=== PATIENT | male | born 1945 | race Caucasian/White ===

== ENCOUNTER 2023-12-29 20:32 | Observation (INO) | payer MEDICARE, SELFPAY ==
[2023-12-29] VITALS (8 sets, daily range): BP systolic 108–158; BP diastolic 58–78; BMI 27.3
[2023-12-29 17:09] LABS: Glucose - Point of Care 127 mg/dl (70-99)
--- NOTE | 2023-12-29 17:19 | ED.CVA ---
History of Present Illness
<Antonia Calixto PA-C - Last Filed: 12/29/23 20:39>
General
Chief Complaint: CVA/TIA Symptoms
Source: patient
Exam Limitations: none
Time Seen by Provider: 12/29/23 17:04
Nursing documentation reviewed up to this point in time: agreed with
Onset of Stroke Symptoms
Onset of symptoms known: Yes
Date of onset of symptoms: 12/28/23
Time pt last seen normal is known: Yes
Date last time pt seen normal: 12/29/23
History of Present Illness
History of Present Illness:
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 Patient reports that he first started with irritation
in his left eye a few days ago. Patient states that he had trouble closing his left eye. Patient states that this morning when he eating breakfast at around 9 AM, he noticed that coffee was dribbling out of the left side of his mouth. Patient
noted also at that time a decrease in sensation on the left side of his face. Of note, patient reports that his noted that last night, his speech appeared 'different' to her. Patient himself denies any difficulty speaking. Patient denies any
rashes, any fevers or chills. 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 Patient denies ear pain, lightheadedness, dizziness. Patient states that he has had a TIA in the past but denies
ever having a stroke. Patient denies any left-sided upper or lower extremity weakness. Patient Nuys any difficulty ambulating. Patient denies any decrease in sensation in his extremities. Patient denies any chest pain or shortness of breath.
Note, patient reported to urgent care today with concerns of left eye irritation however patient was sent to the emergency department due to his facial droop.
Review of Systems
<Antonia Calixto PA-C - Last Filed: 12/29/23 20:39>
Review of Systems
All Other Systems: ROS reviewed and negative except as documented in HPI and ROS
Phy Exam
<Antonia Calixto PA-C - Last Filed: 12/29/23 20:39>
Physical Exam
Physical Exam:
General: Patient is well appearing and in no acute distress; non-toxic
Skin: Warm and dry, no rashes or lesions
Head: Normocephalic, atraumatic
Eyes: Sclera non-icteric. EOMs intact. PERRLA. Left scleral injection noted. Visual field testing intact.
Cardiac: Regular rate and rhythm, no murmurs.
Peripheral Vascular: No lower extremity swelling or edema.
Pulm: Normal respiratory effort, no wheezes, rales, rhonchi
Musculoskeletal: 5 out of 5 strength in bilateral upper and lower extremities.
Neuro: CN II-XII intact. Left sided facial droop noted that spares the forehead and eyebrow. Tongue deviation noted. Decrease sensation noted to left side of face. Normal finger to nose, heel to daley testing. Normal gate.
Psychiatric: Appropriate mood and affect.
Scores
<Antonia Calixto PA-C - Last Filed: 12/29/23 20:39>
NIH Stroke Score
Level of Consciousness: 0 - Alert
LOC Questions: 0-Answers both correctly
LOC Commands: 0-Performs both correctly
Best Horizontal Gaze: 0-Normal
Visual Henao: 0=Normal, no visual loss
Facial Palsy: 2=Partial paralysis
Motor - Right Arm: 0=No drift 10 seconds
Motor - Left Arm: 0=No drift 10 seconds
Motor - Right Le-No drift 5 seconds
Motor - Left Le-No drift 5 seconds
Limb Ataxia: 0-Absent
Sensation: 0-Normal
Best Language: 0-No aphasia
Dysarthria: 0-Normal
Extinction and Inattention: 0-No abnormality
Total Score:: 2
<Dwayne De Paz MD - Last Filed: 12/29/23 19:34>
NIH Stroke Score
Total Score:: 2
Course
<Antonia Calixto PA-C - Last Filed: 12/29/23 20:39>
Orders/Labs/Results
Orders:
Orders
12/29/23 17:10
Complete Blood Count/With Diff Urgent
Comprehensive Metabolic Panel Urgent
12/29/23 17:19
CT Head W/o Iv Contrast Urgent
Comment:
Reason For Exam: left facial droop
12/29/23 19:50
Aspirin 325 mg PO NOW STA
12/29/23 20:21
Admit/Transfer Patient As Directed
Co-Sign Provider:
Level of Care: Observation services
Assign to:: Telemetry
Physician / Group: michelle
Diagnosis: bells palsy vs cva
Reason for Telemetry: Arrhythmia
Date to Stop Telemetry: 01/01/24
Time to Stop Telemetry: 11:00
PRN Pain Medication Management As Directed
May give lesser potent ordered pain med per pt: Yes
preference::
Protocol:: Medication orders for pain may be administered in a
manner that supports deferring to patient preference
when the pt is:
- Requesting an ordered lesser potent pain medication.
Least to most potent pain medications are defined
as: acetaminophen < NSAID < tramadol < opioids
(morphine, oxycodone, hydromorphone).
- Requesting a lesser dose of the same medication IF
ORDERED.
- Requesting a less intrusive route of administration
if both routes are prescribed by the provider (PO <
IV).
12/29/23 20:22
Code Status As Directed
Resuscitation Status: Full Code
12/29/23 20:24
Clopidogrel Bisulfate [Plavix] 300 mg PO NOW STA
12/29/23 20:31
Potassium Chloride [KCl] 40 meq PO NOW STA
01/01/24 11:00
DC Protocol for Telemetry ONCE
Abnormal Lab Results
12/29/23 12/29/23
17:07 17:10
RBC 4.64 L 10^6/uL
(4.70-6.10)
MCH 31.3 H pg
(27.0-31.0)
Absolute Monos (auto) 0.7 H 10^3/uL
(0.1-0.6)
Monocytes % 9.6 H %
(1.7-9.3)
Potassium 3.1 L mmol/L
(3.5-5.1)
Glucose 122 H mg/dl
(70-99)
POC Glucose 127 H mg/dl
(70-99)
12/29/23 17:10
12/29/23 17:10
Vital Signs
Initial and Last Documented VS:
Initial Vital Signs
Temp Pulse Resp BP Pulse Ox
98.1 F 92 18 108/58 97
12/29/23 16:49 12/29/23 16:49 12/29/23 16:49 12/29/23 16:49 12/29/23 16:49
Last Documented Vital Signs
Temp Pulse Resp BP Pulse Ox
98.1 F 79 16 131/66 98
12/29/23 16:49 12/29/23 20:15 12/29/23 20:15 12/29/23 20:00 12/29/23 18:00
<Dwayne De Paz MD - Last Filed: 12/29/23 19:34>
Orders/Labs/Results
Orders:
Orders
12/29/23 17:10
Complete Blood Count/With Diff Urgent
Comprehensive Metabolic Panel Urgent
12/29/23 17:19
CT Head W/o Iv Contrast Urgent
Comment:
Reason For Exam: left facial droop
12/29/23 19:50
Aspirin 325 mg PO NOW STA
12/29/23 20:21
Admit/Transfer Patient As Directed
Co-Sign Provider:
Level of Care: Observation services
Assign to:: Telemetry
Physician / Group: michelle
Diagnosis: bells palsy vs cva
Reason for Telemetry: Arrhythmia
Date to Stop Telemetry: 01/01/24
Time to Stop Telemetry: 11:00
PRN Pain Medication Management As Directed
May give lesser potent ordered pain med per pt: Yes
preference::
Protocol:: Medication orders for pain may be administered in a
manner that supports deferring to patient preference
when the pt is:
- Requesting an ordered lesser potent pain medication.
Least to most potent pain medications are defined
as: acetaminophen < NSAID < tramadol < opioids
(morphine, oxycodone, hydromorphone).
- Requesting a lesser dose of the same medication IF
ORDERED.
- Requesting a less intrusive route of administration
if both routes are prescribed by the provider (PO <
IV).
12/29/23 20:22
Code Status As Directed
Resuscitation Status: Full Code
12/29/23 20:24
Clopidogrel Bisulfate [Plavix] 300 mg PO NOW STA
12/29/23 20:31
Potassium Chloride [KCl] 40 meq PO NOW STA
01/01/24 11:00
DC Protocol for Telemetry ONCE
Abnormal Lab Results
12/29/23 12/29/23
17:07 17:10
RBC 4.64 L 10^6/uL
(4.70-6.10)
MCH 31.3 H pg
(27.0-31.0)
Absolute Monos (auto) 0.7 H 10^3/uL
(0.1-0.6)
Monocytes % 9.6 H %
(1.7-9.3)
Potassium 3.1 L mmol/L
(3.5-5.1)
Glucose 122 H mg/dl
(70-99)
POC Glucose 127 H mg/dl
(70-99)
12/29/23 17:10
12/29/23 17:10
Vital Signs
Initial and Last Documented VS:
Initial Vital Signs
Temp Pulse Resp BP Pulse Ox
98.1 F 92 18 108/58 97
12/29/23 16:49 12/29/23 16:49 12/29/23 16:49 12/29/23 16:49 12/29/23 16:49
Last Documented Vital Signs
Temp Pulse Resp BP Pulse Ox
98.1 F 79 16 131/66 98
12/29/23 16:49 12/29/23 20:15 12/29/23 20:15 12/29/23 20:00 12/29/23 18:00
Hannahlt;Antonia Calixto PA-C - Last Filed: 12/29/23 20:39>
MDM/Problems Addressed
Differential Diagnosis Includes:
Differentials include stroke, Rosenthal's palsy, Lyme disease, herpes simplex virus, guillan barre syndrome, brain tumor, MS
MDM/Problems Addressed:
Stroke like symptoms:
78 y/o male hx of TIA, HTN, HLP coming in today with left sided facial droop and left eye redness/irritation. He has had the eye irritation for multiple days and went to urgent care and they noticed the droop and they sent him to the emergency
department. He said he thought the droop might've started at 9 am this morning when he noticed coffee dribbling out of the left side of his mouth. NIHHS of 2.On exam, he has left-sided facial droop that spares the forehead with decreased left-sided
facial sensation but normal strength in bilateral upper and lower extremities. Also has tongue deviation. Due to his stroke risk factors and the fact that his symptoms spares the forehead and eyebrow, we will refer for admission for stroke workup.
Case discussed with my attending.
Chronic conditions affecting care:
TIA, HTN, HLP
<Antonia Calixto PA-C - Last Filed: 12/29/23 20:39>
*Critical Care Note
Total Time (30-74mins, 75-104mins- exclusive of procedures): Not Applicable (last known normal unclear but at least more than 4.5 hours ago)
ED Attending Note
<Antonia Calixto PA-C - Last Filed: 12/29/23 20:39>
-
Portions of this chart may have been created with voice recognition software.� Occasional wrong word or��sound alike� substitutions may have occurred due to the inherent limitations of voice recognition software.
<Dwayne De Paz MD - Last Filed: 12/29/23 19:34>
ED Attending Note
Patient seen and examined by attending physician: Yes
I performed the substantive portion of visit, reviewed & personally made and approve the management plan that is documented in note by myself or SARAH.: Yes
ED Attending Note:
Patient is a 70-year-old male with history of hypertension, hyperlipidemia, Rosenthal's palsy presenting to the emergency department with facial weakness. Patient states that 2 days ago his eye started bothering him. Today he noticed that coffee was
spilling out of his mouth. noticed that he had a change in his speech. Given the eye problem they went to an urgent care today where they noticed that he had left-sided facial droop. He denies any numbness tingling to his extremities or
weakness. He does have history of prior TIAs that involve the right side. No rashes
Vitals here are unremarkable.
GENERAL: in no acute distress
HEENT: normocephalic, extraocular movements intact, moist oral mucosa
NECK: normal inspection
RESPIRATORY: no respiratory distress, clear to auscultation bilaterally
CARDIOVASCULAR: regular rate and rhythm
ABDOMEN/: soft, non-distended, non-tender to palpation, no rebound or guarding
EXTREMITIES: non-tender, no edema/swelling
NEUROLOGIC: alert and oriented x 3, left-sided facial droop that spares the forehead with decreased left-sided facial sensation right upper extremity strength 5/5, left upper extremity strength 5/5, right lower extremity strength 5/5, left lower
extremity strength 5/5, normal sensation to light touch, normal [id number] and [id number], gait not tested formally
SKIN: warm
Patient is a 78-year-old man with history of prior TIA, hypertension, hyperlipidemia presenting to the emergency department with facial weakness. Patient's last known normal is unclear but at least more than 4.5 hours ago. NIH is 2. He does have
an obvious facial droop with decreased sensation. He is outside of the stroke alert window. Will obtain blood work and CT scan. Patient will need admission for further management and evaluation.
CT scan without any obvious hemorrhage. Will give aspirin. PA to discuss with hospitalist for admission.
Discharge Plan
Departure
Patient Disposition: Admit
Date of Disposition: 12/29/23
Time of Disposition: 20:06
Admit to: Med/Surg
Presentation/result/management discussed w/ accepting MD/DO: Hospitalist
Patient with high blood pressure during this ER visit?: No
Condition: Fair
Discharge Problem:
Symptoms of cerebrovascular accident (CVA)
Interventions
Interventions:
ED- Pulmonary Assessment Last Done: 12/29/23 17:20
ED- Neurological Assessment Last Done: 12/29/23 17:20
ED- Cardiac Assessment Last Done: 12/29/23 17:20
ED Swallowing Screen Last Done: 12/29/23 17:30
[2023-12-29 17:28] LABS: % Basophils 0.4 % (0-2); % Eosinophils 2.1 % (0-6); % Immature Granulocytes 0.1 % (0-0.5); % Lymphocytes 25.7 % (20.5-51.1); % Monocytes 9.6 % (1.7-9.3); % Neutrophils 62.1 % (42.2-75.2); Absolute Eosinophils 0.2 10^3/uL (0-0.7); Absolute Lymphocytes 1.9 10^3/uL (1.2-3.4); Absolute Monocytes 0.7 10^3/uL (0.1-0.6); Absolute Neutrophils 4.5 10^3/uL (1.4-6.5); Hematocrit 39.6 % (39.0-52.0); Hemoglobin 14.5 g/dL (13.0-18.0); Mean Corp Hgb Conc. 36.6 g/dL (33.0-37.0); Mean Corpuscular Hgb 31.3 pg (27.0-31.0); Mean Corpuscular Volume 85.3 fL (80.0-94.0); Mean Platelet Volume 9.1 fL (7.4-10.4); Nucleated Red Blood Cells % 0 % (-); Platelet Count 226 10^3/uL (130-400); Red Blood Cell Count 4.64 10^6/uL (4.70-6.10); White Blood Cell Count 7.2 10^3/uL (4.8-10.8)
[2023-12-29 17:47] LABS: ALT (SGPT) 20 U/L (0-50); AST (SGOT) 28 U/L (17-59); Albumin 4.6 g/dl (3.5-5.0); Alkaline Phosphatase 79 U/L (38-126); Blood Urea Nitrogen 19 mg/dl (9-20); Calcium 9.9 mg/dl (8.4-10.2); Carbon Dioxide 30 mmol/L (22-30); Chloride 98 mmol/L (98-107); Glucose 122 mg/dl (70-99); Potassium 3.1 mmol/L (3.5-5.1); Sodium 137 mmol/L (135-145); Total Bilirubin 0.5 mg/dl (0.2-1.3); Total Protein 6.8 g/dl (6.3-8.2); eGFR > 60.00
[2023-12-29] MEDS: ASPIRIN 325 MG PO (20:07)
--- NOTE | 2023-12-29 20:24 | HPS.HSE ---
Addendum entered and electronically signed by Randolph Bhatt MD 12/29/23 20:29:
Left eye conjunctivitis. Erythromycin eyedrops.
Original Note:
Family Physician
-
Family Physician: Enmanuel Salomon MD, Resident
Chief Complaint
-
facial droop
History of Present Illness
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
palsy 15 years ago right side of the face, presenting with left-sided facial droop and left eye irritation. A few days ago he developed pain in the corner of his left eye with pain in that area. He denies any injury to the eye or allergies.
This morning when he was eating breakfast he noticed cough he was drooling out of the left side of his mouth and he noticed decree sensation left side of his face. noticed that last night his speech appeared slurred. He denies any difficulty
speaking. Denies any rash, fevers or chills. 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
He has a history of double vision which was thought to be from ocular nerve palsy which has been corrected with glasses. He denies any worsening double vision at this time.
He has a history of vestibular dysfunction and occasional gait dysfunction with falls with migraine that is well-controlled on nortriptyline. He denies any tinnitus or hearing loss at this time. He denies any focal weakness or difficulty
ambulating. He denies any numbness or tingling the extremities. He denies any chest pain or shortness of breath.
He has a history of hemochromatosis like disease for which he got phlebotomy.
He denies any smoking or alcohol use or drugs.
Medical History
Past Medical History
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
15 years ago right side of the face)
Past Surgical History: Reports None
Social History
Tobacco: Non-smoker
Alcohol: None
Drug: None
Family History
Family History: Not pertinent
Allergies / Home Medications
Allergies reflects when Allergies were last updated in [employer].
Home Medications with original date entered in [employer]
Allergy/Medication List:
Allergies
Allergy/AdvReac Type Severity Reaction Status Date / Time
No Known Allergies Allergy Unverified 12/29/23 16:55
Home Medications
amlodipine 2.5 mg tablet 2.5 mg PO HS 12/29/23
atorvastatin 10 mg tablet 10 mg PO Q48H 12/29/23
gabapentin 300 mg capsule 300 mg PO HS 12/29/23
lisinopril 20 mg-hydrochlorothiazide 25 mg tablet 1 tab PO DAILY 12/29/23
nortriptyline 50 mg capsule 50 mg PO HS 12/29/23
Review of Systems
-
History Source: Patient
A 12 point ROS was completed and negative except as noted: Yes
Constitutional: Reports No Symptoms
EENT: Reports No Symptoms
Respiratory: Reports No Symptoms
Cardiac: Reports No Symptoms
Abdomen/GI: Reports No Symptoms
: Reports No Symptoms
Musculoskeletal: Reports No Symptoms
Skin: Reports No Symptoms
Neurological: Reports See HPI
Endocrine: Reports No Symptoms
Hematologic/Lymphatic: Reports No Symptoms
Psych: Reports No Symptoms
Physical Exam
Vital Signs
Vital Signs
Temp Pulse Resp BP Pulse Ox
98.1 F 79 16 131/66 98
12/29/23 16:49 12/29/23 20:15 12/29/23 20:15 12/29/23 20:00 12/29/23 18:00
Physical Exam
General: Well Developed, Well Nourished and No Apparent Distress
HEENT: NormoCephalic, Moist mucous membranes and Atraumatic
Respiratory: Clear
Cardiac: S1/S2 and Regular Rhythm; No Murmur or Rub
GI: Soft, Non Tender, Non Distended and Normal Bowel Sounds; No Organomegaly
Rectal: Deferred by Provider
Musculoskeletal: No Clubbing, No Cyanosis and No Edema
Skin: No Rash
Neuro: Nonfocal/grossly intact and Other (NIH 3 partial face paralysis and decreased sensation)
Laboratory Results
-
12/29/23 17:10
12/29/23 17:10
Laboratory Results
Total Bilirubin 0.5 mg/dl (0.2-1.3) 12/29/23 17:10
AST 28 U/L (17-59) 12/29/23 17:10
ALT 20 U/L (0-50) 12/29/23 17:10
Alkaline Phosphatase 79 U/L (38-126) 12/29/23 17:10
Data Reviewed
-
Lab Data: Labs Reviewed by me
Old Records: Reviewed
Impression/Plan
-
IMPRESSION:
PLAN:
# Rosenthal's palsy versus CVA
# History of Rosenthal's palsy
-NIH of 3 due to partial face paralysis and decreased sensation, however face paralysis seems to be mildly affecting the forehead suggesting Rosenthal's palsy
-CT head shows no acute abnormality
-Aspirin and Plavix
-Check MRI brain
-Check A1c and lipid panel
-Check speech and swallow
-Permissive hypertension, hold antihypertensives
-PT/OT
-Neurology consulted
# Hypokalemia secondary to hydrochlorothiazide
-Replete potassium
History of vestibular dysfunction associate with migraines
-Continue nortriptyline
History of ocular nerve palsy
-has some baseline double vision
Common variable immunodeficiency
-Not on treatment
Hemochromatosis like disorder
-Received phlebotomy in the past
Essential hypertension
-Hold amlodipine, lisinopril/hydrochlorothiazide tonight
Hyperlipidemia
-Continue statin
Chronic back pain
-Continue gabapentin
Full code
DVT prophylaxis�SCDs
Regular diet
[2023-12-29] MEDS: PLAVIX 300 MG PO (20:39)
[2023-12-29] MEDS: KCL 40 MEQ PO (20:39)
[2023-12-29] MEDS: NEURONTIN 300 MG PO (22:15)
--- NOTE | 2023-12-29 22:15 | PTCARENOTE ---
pt has a watch
[2023-12-29] MEDS: ERYTHROMYCIN 0.5% OPHTHALMIC OINTMENT 1 APPLIC OPHTH (22:16)
[2023-12-29] MEDS: PAMELOR 50 MG PO (22:16)
--- NOTE | 2023-12-29 22:28 | PTCARENOTE ---
Received pt from ED via stretcher, pt ambulated to bed without assistance. AAOx3, VSS, no complaints of pain. NIH 4 for facial droop, mild slur, slight decreased sensation on left side of face. Oriented pt to floor, call franco within reach.
[2023-12-30 03:10] VITALS: BP 143/66
[2023-12-30 06:52] LABS: Hematocrit 39.3 % (39.0-52.0); Hemoglobin 14.1 g/dL (13.0-18.0); Mean Corp Hgb Conc. 35.9 g/dL (33.0-37.0); Mean Corpuscular Hgb 31.8 pg (27.0-31.0); Mean Corpuscular Volume 88.7 fL (80.0-94.0); Mean Platelet Volume 9.8 fL (7.4-10.4); Platelet Count 204 10^3/uL (130-400); Red Blood Cell Count 4.43 10^6/uL (4.70-6.10); Red Cell Dist. Width 11.9 % (11.5-14.5); White Blood Cell Count 5.7 10^3/uL (4.8-10.8)
[2023-12-30 07:20] LABS: Blood Urea Nitrogen 19 mg/dl (9-20); Calcium 9.6 mg/dl (8.4-10.2); Carbon Dioxide 30 mmol/L (22-30); Chloride 100 mmol/L (98-107); Estimated Creatinine Clearance 59 ml/min; Glucose 126 mg/dl (70-99); HDL Cholesterol 39 mg/dl; LDL Cholesterol, Calculated 78 mg/dl; Potassium 3.7 mmol/L (3.5-5.1); Sodium 135 mmol/L (135-145); Total Cholesterol 145 mg/dl (50-199); Triglyceride 141 mg/dl (10-149); Very Low Density Lipoprotein 28 mg/dl (0-30); eGFR > 60.00
[2023-12-30 07:51] LABS: Hepatitis C Antibody Negative (Negative)
[2023-12-30 08:03] VITALS: BP 131/66
[2023-12-30 08:34] LABS: Glycohemoglobin (HgbA1c) 6.2 % (4.0-5.6)
[2023-12-30 08:45] VITALS: BP 148/77; PULSE 76; O2SAT 97
[2023-12-30] MEDS: LIPITOR 10 MG PO (09:06)
[2023-12-30] MEDS: PLAVIX 75 MG PO (09:07)
[2023-12-30] MEDS: ERYTHROMYCIN 0.5% OPHTHALMIC OINTMENT 1 APPLIC OPHTH (09:07)
--- NOTE | 2023-12-30 10:05 | PTOTSP ---
ST Acute Care Evaluation
Pt currently demonstrates clinical symptoms of mild oral dysphagia characterized by L sided labial weakness results in anterior spillage (not observed) and reduced L sided sensation in lips/mouth that results in occasional reported residue (not
observed). Pt also self-reports slight dysarthria, but is perceived to be 100% intelligible to an unfamiliar listener.
Recommendations:
- Continue with regular solids, thin liquids, meds as tolerated.
- General aspiration precautions: small bites, tongue sweep, alternate solids/liquids.
- SEPARATOR INSERTER to f/u briefly to ensure pt is adequately implementing compensatory strategies for both speech and swallowing.
--- NOTE | 2023-12-30 10:54 | PTOTSP ---
Received order for PT and reviewed chart. S/w OT and pt who just saw neurologist at bedside. Pt admitted with Rosenthal's palsy. Has no other strength/sensory deficits. Independent with ambulation without need for any assistive device. Pt asking about
outpatient PT for Rosenthal's palsy. S/w outpatient therapist. Gave pt pamphlet for outpatient PT and name of therapist who treats Rosenthal's palsy. No acute PT mobility needs. Will sign off.
[2023-12-30 11:44] VITALS: BP 133/71
[2023-12-30] MEDS: DELTASONE 60 MG PO (12:06)
--- NOTE | 2023-12-30 12:56 | W.PN.HOSP.TC ---
Today's Communication/Plan
-
initiate steroids
lyme check
discharge home if mri neg
Assessment / Plan
Assessment / Plan
1. Left franco's palsy
h/o right franco's palsy
-r/o stroke, MRI brain pending.
-CT head shows no acute abnormality
-Check speech and swallow
-Check Lyme serology, left ear - no pain/blister.
-Neurology consulted for further help
-Started on oral prednisone 60mg/d x7 days for now
2. Hypokalemia
-secondary to hydrochlorothiazide
-Replace PRN
3. Left eye episcleritis
-will need evaluation by ophthalmology post discharge
History of vestibular dysfunction associate with migraines
History of ocular nerve palsy
Common variable immunodeficiency - denies h/o of bacterial infection in past.
H/o high ferritin/Iron overload -Received phlebotomy in the past due to high ferritin level, although Hemochromatosis gene testing was negative.
Essential hypertension
Hyperlipidemia
Chronic back pain
Full code
DVT prophylaxis�SCDs
Anticipated Discharge: Today
Subjective/Interval History
-
Date of Service: December 30, 2023
seen and examined
patient still have left facial weakness/left conjunctivitis
Objective Data
-
Labs:
Laboratory Results
12/30/23
04:35
WBC 5.7
Hgb 14.1
Hct 39.3
Plt Count 204
Sodium 135
Potassium 3.7
Chloride 100
Carbon Dioxide 30
BUN 19
Creatinine 1.0
Glucose 126 H
Calcium 9.6
Vital Signs:
Vital Signs
Temp Pulse Resp BP Pulse Ox
97.9 F 71 18 133/71 98
12/30/23 11:44 12/30/23 11:44 12/30/23 11:44 12/30/23 11:44 12/30/23 11:44
Review of Systems
-
Respiratory: Reports No Symptoms
Cardiac: Reports No Symptoms
Abdomen/GI: Reports No Symptoms
Physical Exam
-
General: No Apparent Distress and Comfortable
HEENT: Negative Oxygen
Respiratory: Clear to Auscultation
Cardiac: Regular Rhythm and S1/S2; Negative Murmur or Rub
Neuro: Awake, Alert, Oriented and Other (Left facial droop, able to wrinkle forehead, loss of left nasolabial groove)
Psych: Calm
--- NOTE | 2023-12-30 15:27 | CM ---
Alert awake oriented patient who lives with his Jessica who lives in a 2 story home with 1 step to enter and bed and bathroom on first floor. He is independent in all activities of daily living.No adaptive devices.Offered VN he declined
need.[place] letter given and explained. Signed AUSTIN on chart.
No VN hx /No SNF hx
Pharmacy [facility]
PCP DR Taj Fernández
PLAN Home no anticipated needs
--- NOTE | 2023-12-30 18:25 | W.DCSUMMARY ---
Discharge Summary
Discharge Data
Date of Admission: 12/29/23
Date of Discharge: 12/30/23
-
Pending Results: No
Hospital Course
Discharging Physician : Dr Shivam Espinosa
Disposition : Home
Primary care physician : Dr Enmanuel Salomon
Principal Discharge diagnosis :
Left bells palsy
Presumed left eye episcleritis
Chronic Discharge diagnosis :
History of vestibular dysfunction associated with migraines
History of ocular nerve palsy
Common variable immunodeficiency
History of high ferritin level/iron overload requiring phlebotomy
Essential hypertension
Hyperlipidemia
Chronic back pain
Hospital Course :
Patient is a 78-year-old male with mentioned past medical history came to ER for having new onset left-sided facial weakness. Patient initially noticed redness and corner of left eye followed by some drooping of eyelid and facial weakness. Patient
does have history of Rosenthal's palsy on right side of face, reason was unclear during the first episode. Patient denies of history of any Lyme/HSV infection. On exam in ER findings were consistent with Rosenthal's palsy. CT head was done by ER physician
which was negative. A follow-up MRI brain was done following day which was also negative for any stroke. Patient was started on prednisone therapy and discharged home with follow-up with ophthalmology in office.
Important imaging findings :
None
Procedure findings :
None
Discharge Plan
-
Patient Disposition: Home (Routine Discharge)
Discharge Diagnosis/Procedures: Left bells plasy
Condition: Fair
Diet: Regular
Activity: As tolerated
Driving Restrictions: As prior to admission
Bathing Restrictions: OK to Shower
Activity Restrictions/Additional Instructions:
Please wear protective sunglass or left eye patch.
Please call for an appointment with Dr Cate Littlejohn
Referrals:
Kris Lauren MD [Active] - in one month
Cate Littlejohn MD [Active] -
Enamnuel Salomon MD, Resident [Family Provider] - in one week
Prescriptions:
New
carboxymethylcellulose sodium [Refresh Tears] 0.5 % drops
2 drp ophthalmic (eye) Q4H Qty: 15 0RF
prednisone 20 mg tablet
60 mg PO DAILY 7 Days Qty: 21 0RF
Continued
atorvastatin 10 mg Tablet
10 mg PO Q48H
amlodipine 2.5 mg Tablet
2.5 mg PO HS
gabapentin 300 mg Capsule
300 mg PO HS
lisinopril-hydrochlorothiazide 20-25 mg Tablet
1 tab PO DAILY
nortriptyline 50 mg Capsule
50 mg PO HS
Discharge Orders:
Discharge Patient (As Directed); Ordered 12/30/23
Ordered By: Shivam Espinosa
Discharge Date and Time
Discharge Date/Time: 12/30/23 15:52
Print Language: CYMRAES
[2024-01-03 14:45] LABS: Lyme Antibody Screen, EIA Negative (Negative)
== END 2023-12-30 15:52 | disposition home or self-care (01) ==
LOC: 4 EAST ACU 20:32
PROVIDERS: Physician Assistant; ADMITTING PHYSICIAN Hospitalist; ATTENDING PHYSICIAN Hospitalist; EMERGENCY PHYSICIAN Student in an Organized Health Care Education/Training Program; FAMILY PHYSICIAN Student in an Organized Health Care Education/Training Program
DX: G51.0 Bell's palsy (principal); H57.89 Other specified disorders of eye and adnexa; I10 Essential (primary) hypertension; E78.5 Hyperlipidemia, unspecified; H10.89 Other conjunctivitis; G89.29 Other chronic pain; D83.9 Common variable immunodeficiency, unspecified; E87.6 Hypokalemia; M54.9 Dorsalgia, unspecified; E83.119 Hemochromatosis, unspecified; G31.89 Other specified degenerative diseases of nervous system; H15.102 Unspecified episcleritis, left eye; Z86.73 Personal history of transient ischemic attack (TIA), and cerebral infarction without residual deficits
CPT/HCPCS: 70450; 70551; 80048; 80053; 80061; 82962; 83036; 85025; 85027; 86618; 86803; 92610; 97166; 99285; G0378

== ENCOUNTER 2024-08-30 07:36 | Inpatient (IN) | payer MEDICARE, SELFPAY ==
[2024-08-27] VITALS (8 sets, daily range): BP systolic 119–177; BP diastolic 64–107
[2024-08-27 17:41] LABS: % Basophils 0.8 % (0-2); % Eosinophils 3.1 % (0-6); % Immature Granulocytes 0.2 % (0-0.5); % Monocytes 9.1 % (1.7-9.3); % Neutrophils 62.8 % (42.2-75.2); Absolute Basophils 0.1 10^3/uL (0-0.2); Absolute Eosinophils 0.2 10^3/uL (0-0.7); Absolute Lymphocytes 1.6 10^3/uL (1.2-3.4); Absolute Monocytes 0.6 10^3/uL (0.1-0.6); Absolute Neutrophils 4.1 10^3/uL (1.4-6.5); Hematocrit 39.4 % (39.0-52.0); Mean Corp Hgb Conc. 35.5 g/dL (33.0-37.0); Mean Corpuscular Hgb 30.8 pg (27.0-31.0); Mean Corpuscular Volume 86.6 fL (80.0-94.0); Mean Platelet Volume 9.4 fL (7.4-10.4); Nucleated Red Blood Cells % 0 % (-); Platelet Count 210 10^3/uL (130-400); Red Blood Cell Count 4.55 10^6/uL (4.70-6.10); Red Cell Dist. Width 12.7 % (11.5-14.5); White Blood Cell Count 6.5 10^3/uL (4.8-10.8)
[2024-08-27 17:55] LABS: ALT (SGPT) 17 U/L (0-50); AST (SGOT) 22 U/L (17-59); Albumin 4.3 g/dl (3.5-5.0); Alkaline Phosphatase 110 U/L (38-126); Blood Urea Nitrogen 19 mg/dl (9-20); Calcium 9.3 mg/dl (8.4-10.2); Carbon Dioxide 30 mmol/L (22-30); Chloride 102 mmol/L (98-107); Glucose 181 mg/dl (70-99); Potassium 3.4 mmol/L (3.5-5.1); Sodium 141 mmol/L (135-145); Total Bilirubin 0.5 mg/dl (0.2-1.3); Total Protein 6.2 g/dl (6.3-8.2); eGFR > 60.00
[2024-08-27 18:09] LABS: INR 0.97; PT 13.2 Sec (11.4-14.6)
[2024-08-27 19:05] LABS: C-Reactive Protein < 5.00 mg/L (0.0-10.00)
--- NOTE | 2024-08-27 20:33 | ED.GENMED ---
History of Present Illness
General
Chief Complaint: Visual Problem
Time Seen by Provider: 08/27/24 17:57
History of Present Illness
History of Present Illness:
79-year-old male presents to the emergency department for evaluation of right-sided headache and diplopia for the past 4 days. Diplopia has noticeably worsened since onset. Has been using an eye patch to limit the symptoms. Denies any nausea,
vomiting, neck pain, or extremity paresthesias. Notes that he has had a past history greater than 20 years ago of a cranial nerve palsy with resultant diplopia however this corrected itself with use of corrective lenses. Denies any ocular pain or
vision loss.
Review of Systems
Review of Systems
Allergies reviewed?: Yes
All Other Systems: ROS reviewed and negative except as documented in HPI and ROS
Phy Exam
Physical Exam
Physical Exam:
GEN: Well appearing, NAD, WDWN
HEENT: Oral mucosa moist, no scleral icterus, no nasal congestion, no palpable temporal artery or tenderness on the right
Cardiac: Regular rate
Lung: No respiratory distress, no tachypnea
MSK: No gross deformity or injuries
Skin: Good color, no pallor or jaundice, no rashes
Neuro: AO x3; right upper lid ptosis present, no obvious extraocular motion deficit, remainder of cranial nerves II through XII grossly intact ; BUE strength 5/5 in all batres, sensation intact and symmetric. BLE strength 5/5 in all batres,
sensation intact and symmetric
Psych: Calm, cooperative
Course
Orders/Labs/Results
Orders:
Orders
08/27/24 17:33
Comprehensive Metabolic Panel Urgent
08/27/24 17:34
C-Reactive Protein Urgent
Comment: ADD ON
Complete Blood Count/With Diff Urgent
08/27/24 17:35
Prothrombin Time Urgent
08/27/24 18:12
Add On- LAB Urgent
Tests Added?: CRP
CT Head & Neck Angio W/wo IV Urgent
Comment:
Reason For Exam: diplopia
Abnormal Lab Results
08/27/24 08/27/24
17:33 17:34
RBC 4.55 L 10^6/uL
(4.70-6.10)
Potassium 3.4 L mmol/L
(3.5-5.1)
Glucose 181 H mg/dl
(70-99)
Total Protein 6.2 L g/dl
(6.3-8.2)
08/27/24 17:34
08/27/24 17:33
Vital Signs
Initial and Last Documented VS:
Initial Vital Signs
Temp Pulse Resp BP Pulse Ox
98.1 F 85 16 177/79 99
08/27/24 16:43 08/27/24 16:43 08/27/24 16:43 08/27/24 16:43 08/27/24 16:43
Last Documented Vital Signs
Temp Pulse Resp BP Pulse Ox
98.1 F 74 15 153/69 92
08/27/24 16:43 08/27/24 20:00 08/27/24 20:00 08/27/24 20:00 08/27/24 20:00
MDM/Problems Addressed
MDM/Problems Addressed:
Patient had inflammatory markers sent due to his report of right-sided temporal headache and these were negative ruling out giant cell arteritis. Given the binocular diplopia coupled with right-sided ptosis myasthenia gravis is considered. CT
angiogram is reassuring against intracranial aneurysm. No obvious extraocular motion deficits to suggest a cranial nerve palsy. Case was discussed with neurology who requested we start the patient on Mestinon 30 mg 3 times daily, obtain brain MRI
and admit the patient to the hospitalist service
*Critical Care Note
Total Time (30-74mins, 75-104mins- exclusive of procedures): Not Applicable
ED Attending Note
-
Portions of this chart may have been created with voice recognition software.� Occasional wrong word or��sound alike� substitutions may have occurred due to the inherent limitations of voice recognition software.
Discharge Plan
Departure
Patient Disposition: Admit
Date of Disposition: 08/27/24
Time of Disposition: 20:53
Admit to: Med/Surg
Presentation/result/management discussed w/ accepting MD/DO: Hospitalist
Discharge Problem:
Diplopia
Prescriptions:
No Action
atorvastatin 10 mg Tablet
10 mg PO Q48H
amlodipine 2.5 mg Tablet
2.5 mg PO HS
gabapentin 300 mg Capsule
300 mg PO HS
lisinopril-hydrochlorothiazide 20-25 mg Tablet
1 tab PO DAILY
nortriptyline 50 mg Capsule
50 mg PO HS
carboxymethylcellulose sodium [Refresh Tears] 0.5 % drops
2 drp ophthalmic (eye) Q4H Qty: 15 0RF
prednisone 20 mg tablet
60 mg PO DAILY 7 Days Qty: 21 0RF
Referrals:
UNKNOWN - PT DOES,NOT KNOW [Family Provider] -
Interventions
Interventions:
*Risk Screen - Suicide Last Done: 08/27/24 16:43
*General Assessment Last Done: 08/27/24 16:43
*Neglect/Abuse Screening Last Done: 08/27/24 18:10
*ED COVID-19 Vaccine History Last Done: 08/27/24 16:43
ED- Neurological Assessment Last Done: 08/27/24 18:10
ED-EENT Assessment Last Done: 08/27/24 18:10
ED Swallowing Screen Last Done: 08/27/24 18:10
Discharge Date and Time
Print Language: BELGIAN
--- NOTE | 2024-08-27 21:20 | HPS.HSE ---
Addendum entered and electronically signed by Wei Faustin DO 08/27/24 22:46:
Patient seen and examined independently. Agree with findings and plan as set forth by DARRYL Turner.
Patient is a 79y M with PMH significant for hypertension who presents to ED complaining of double vision x 5 days. Patient states that he has had double vision since . his symptoms have gradually worsened since that time. He also notes
mild but persistent R temporal headache and sensitivity. No numbness, weakness or ataxia of the arms / legs. Patient has been wearing an eye patch for symptom relief.
He reports remote history of prior double vision about 20 years ago. His was attributed to a nerve palsy at that time and he worse prism lenses for correction for a time.
He has had no recurrent issues in the interim.
Ass:
Diplopia
R Temporal Headache
Right Ptosis
Benign Hypertension
Chronic Vestibular Dysfunction (left)
Plan:
Observe overnight for further evaluation and treatment.
CTA done in the ED is unremarkable.
CRP was < 5.
Monitor fro any new / worsening symptoms.
Continue eye patch for symptom control.
Neurology evaluation for additional recommendations.
Begin mestinon for now per Neuro recs. Check ACh Abs.
MRI in AM.
Original Note:
Family Physician
-
Family Physician: NOT KNOW UNKNOWN - PT DOES
Chief Complaint
-
visual disturbance
History of Present Illness
Patient is a 79-year-old male with past medical history significant for hypertension, hyperlipidemia and vestibular dysfunction presented to [facility] ED for evaluation of right-sided headache and diplopia for 4 days. Patient states that this past
Wednesday08/30/2024 he started with diplopia following a month long period of time of right temporal pain, described as aching almost like a bruise. Has been unable to lay or put pressure on that side related to discomfort. He is utilizing an eye
patch to limit symptoms. Patient reports coming to hospital today at recommendation of family member who is a PA. He denies any dizziness, weakness or confusion. Patient denies any recent illness, fevers, chills, cough, shortness of breath, chest
pain, nausea, vomiting, constipation, diarrhea or urinary symptoms.
Medical History
Past Medical History
Past Medical History: Reports Other
Additional Past Medical History:
hypertension
hyperlipidemia
vestibular dysfunction
occasional migraine
hemochromatosis like disease
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
chronic back pain
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
Past Surgical History: Reports None
Social History
Tobacco: Non-smoker
Alcohol: Occasional
Drug: None
Personal:
Living: With Family
Employment: Retired
Family History
Family History: Not pertinent
Allergies / Home Medications
Allergies reflects when Allergies were last updated in [facility].
Home Medications with original date entered in [facility]
Allergy/Medication List:
Allergies
Allergy/AdvReac Type Severity Reaction Status Date / Time
No Known Allergies Allergy Verified 08/27/24 16:46
Home Medications
amlodipine 2.5 mg tablet 2.5 mg PO HS Blood Pressure 12/29/23
atorvastatin 10 mg tablet 10 mg PO Q48H High Cholesterol 12/29/23
gabapentin 300 mg capsule 300 mg PO HS Neurological Condition 12/29/23
lisinopril 20 mg-hydrochlorothiazide 25 mg tablet 1 tab PO DAILY Blood Pressure 12/29/23
nortriptyline 50 mg capsule 50 mg PO HS Depression 12/29/23
Review of Systems
-
History Source: Patient
Constitutional: Reports No Symptoms
EENT: Reports Other (diplopia, right ptosis)
Respiratory: Reports No Symptoms
Cardiac: Reports No Symptoms
Abdomen/GI: Reports No Symptoms
: Reports No Symptoms
Musculoskeletal: Reports No Symptoms
Skin: Reports No Symptoms
Neurological: Reports No Symptoms
Endocrine: Reports No Symptoms
Hematologic/Lymphatic: Reports No Symptoms
Psych: Reports No Symptoms
Physical Exam
Vital Signs
Vital Signs
Temp Pulse Resp BP Pulse Ox
98.1 F 74 15 153/69 92
08/27/24 16:43 08/27/24 20:00 08/27/24 20:00 08/27/24 20:00 08/27/24 20:00
Physical Exam
General: Well Developed, Well Nourished, No Apparent Distress, Comfortable and Conversant
HEENT: NormoCephalic, Moist mucous membranes, Atraumatic, [place] Conjunctivae, Nose Appears Normal and Ears Appear Normal
Respiratory: Clear
Cardiac: S1/S2 and Regular Rhythm
Breast: Deferred by me
GI: Soft, Non Tender, Non Distended and Normal Bowel Sounds; No Organomegaly
Rectal: Deferred by Provider
Genito-urinary: Deferred by me
Musculoskeletal: No Clubbing, No Cyanosis and No Edema
Skin: Warm and IV/Catheter Site
Neuro: Awake, Alert, AO x 3, Cranial Nerves Intact (II-XII intact, right upper lid ptosis present, no obvious extraocular motion deficit ), No Sensory Deficits and Other (right upper lid ptosis present)
Hematologic/Lymphatic: No Lymphadenopathy
Psych: Calm and Intact Judgment/Insight
Laboratory Results
-
08/27/24 17:34
08/27/24 17:33
Laboratory Results
PT 13.2 Sec (11.4-14.6) 08/27/24 17:35
INR 0.97 08/27/24 17:35
Total Bilirubin 0.5 mg/dl (0.2-1.3) 08/27/24 17:33
AST 22 U/L (17-59) 08/27/24 17:33
ALT 17 U/L (0-50) 08/27/24 17:33
Alkaline Phosphatase 110 U/L (38-126) 08/27/24 17:33
Data Reviewed
-
CT Scan: Report Reviewed by me (Head/Neck CTA: No acute intracranial hemorrhage. No evidence to suggest acute large vascular territory transcortical infarct at this time. Advanced atrophy, cortical greater than central. No common carotid or
internal carotid significant plaque, stenosis, dissection, or occlusion, bilaterally. No)
Lab Data: Labs Reviewed by me
Impression/Plan
-
IMPRESSION/PLAN:
#diplopia and right ptosis
symptoms started 4 days ago
Head/Neck CTA: No acute intracranial hemorrhage. No evidence to suggest acute large vascular territory transcortical infarct at this time. Advanced atrophy, cortical greater than central.
No common carotid or internal carotid significant plaque, stenosis, dissection, or occlusion, bilaterally.
No [place] aneurysm, stenosis, or occlusion.
No cerebral artery aneurysm, significant stenosis, thrombus, or occlusion. No basilar artery aneurysm, stenosis, or occlusion.
Orbital structures are unremarkable.
Thyroid inhomogeneity and nodularity. Consider follow-up nonemergent ultrasound.
Degree of stenosis based on NASCET criteria.
- Admit to med/surg
- Consult Neurology
- MRI in morning
- start Mestinon 30mg TID
#hypertension
- continue amlodipine and lisinopril
- hold HCTZ
#hyperlipidemia
- continue atorvastatin
#Hx migraines
- continue nortriptyline
#vestibular dysfunction
- continue gabapentin
#Rosenthal's palsy
15 years ago right side of the face
Code status: full code
DVT prophylaxis: SCDs
[2024-08-27] MEDS: MESTINON 30 MG PO (21:59)
[2024-08-27] MEDS: NORVASC 2.5 MG PO (23:15)
[2024-08-27] MEDS: NEURONTIN 300 MG PO (23:15)
[2024-08-27 23:17] LABS: Erythrocyte Sed Rate 11 mm/hour (0-20)
[2024-08-28] MEDS: TYLENOL 650 MG PO ×3 (05:41→16:48)
[2024-08-28 05:59] LABS: Hematocrit 37.2 % (39.0-52.0); Hemoglobin 13.6 g/dL (13.0-18.0); Mean Corp Hgb Conc. 36.6 g/dL (33.0-37.0); Mean Corpuscular Hgb 31.2 pg (27.0-31.0); Mean Corpuscular Volume 85.3 fL (80.0-94.0); Mean Platelet Volume 9.4 fL (7.4-10.4); Platelet Count 195 10^3/uL (130-400); Red Blood Cell Count 4.36 10^6/uL (4.70-6.10); Red Cell Dist. Width 12.5 % (11.5-14.5); White Blood Cell Count 6.7 10^3/uL (4.8-10.8)
--- NOTE | 2024-08-28 06:23 | PTCARENOTE ---
Pt reports 6/10 R temporal pain - Tylenol given. Pt also notes R eye ptosis is worsened - eyelid completely drooped, difficult to open.
--- NOTE | 2024-08-28 07:11 | CON.NEURO ---
Consultation
Order
Date of Consultation: 08/28/24
Requesting Provider: Jaye Nielson CRNP
Reason for Consult: Diplopia
Neurology Consultation Note.
HPI: This is a 79-year-old RH man who presented to [facility] on 08/27/2024 with diplopia.
The patient reports experiencing painless nonfluctuating horizontal binocular diplopia which has been constant since 08/23/2024.
Yesterday, Mr. Johnston developed nonfluctuating right ptosis as well as right facial pain partially alleviated by Tylenol. No reports of dysarthria, dysphagia, dyspnea, change in taste or smell.
The patient recalls developing double vision around 20 years ago, which was attributed to a 'minor stroke'. He has been using prism lenses since then without issues until this recent episode.
The patient reports ongoing balance problems and vestibular dysfunction, which can lead to migraine-like episodes that he has been using nortriptyline prescribed by his neurologist Brianna Castillo MD in [place].
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 He reportedly underwent phlebotomies for 'hemochromatosis-like illness' diagnosed over a decade ago.
The patient denies any recent changes in his sense of taste or smell, chest pain, or leg pain. He reports some minor memory issues but no significant cognitive concerns. Mr. Ramírez also mentions having several granulomas, for which his
transmission worker has said there is no treatment, and a recent removal of basal cell carcinoma.
ER VS: 177/79, 85, afebrile
PDMP:none
Labs: Glucose�181, normal sodium, WBCs
CT head wo contrast�generalized atrophy
CTA head/neck�unremarkable
PMH: Common variable immunodeficiency, hemochromatosis?, BL Rosenthal's palsy, SCC, BCC, HTN, DLP, IGT, vestibular dysfunction, chronic back pain, skin 'granulomas ', arthropathy
PSH: BL iridotomy, right knee arthroscopy, partial medial meniscectomy, most surgeries
SH: , non-smoker, retired IT, uses cane as needed
FH:CAD, DM
All:NKDA
ROS: Constitutional: Negative. Negative for chills, fever and unexpected weight change
HENT: Positive for hearing impairment
Eyes: Positive for diplopia
Respiratory: Negative for cough, choking and shortness of breath.
Cardiovascular: Negative for chest pain, palpitations and leg swelling.
Gastrointestinal: Negative for abdominal pain and vomiting.
Endocrine: Negative. Negative for cold intolerance.
Genitourinary: Negative for dysuria, flank pain and urgency.
Musculoskeletal: Positive for arthralgias
Skin: Positive for rash
Allergic/Immunologic: Positive for immunocompromised state.
Neurological: Positive for diplopia, proptosis
General: Well developed. In no acute distress.
Cardio: Regular rate and rhythm without murmur. Extremities are without cyanosis or edema.
Neuro:
Mental Status: Alert, oriented to person, place, and date. Comprehension, likely due to hearing impairment. Good fund of knowledge. Follows complex requests across the midline. Comprehension, naming, and repetition intact.
Cranial Nerves: Pupils are equally round and reactive to light. EOMs full. Diplopia on by horizontal gaze visual batres full to confrontation. Complete ptosis on the right no nystagmus. V1-V3 intact to light touch and pinprick bilaterally,
symmetric. Face symmetric. Poor hearing AU. The palate elevated well. SCMs and traps 5/5. Tongue midline. Mild dysphonia
Motor: Normal bulk and tone. No pronator or arm drift. Strength 5/5 throughout. No clonus.
Reflexes: 2+ throughout the upper extremities and 0knees. 0/2 in AJs. Plantar responses flexor bilaterally.
Sensory:
Coordination: No dysmetria or tremor.
Gait: deferred
Assessment and Plan:
I. Acute/chronic multiple cranial neuropathies. Differential diagnosis includes inflammatory versus demyelinating, infectious versus neoplastic etiologies.
II. 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
III. Common variable immunodeficiency
- Aspiration precaution
-Dysphagia evaluation
- Please obtain brain MRI with and without gadolinium
- Please check ESR, CRP, CHARLENE, angiotensin-converting enzyme, Lyme, vit B12,
- Plan for CSF based on brain MRI result
- Case was discussed with patient's spouse
I personally reviewed all radiology and labs along with past medical records pertinent to current medical problems. Total time spent in patient care is 60 minutes.
Thank you for allowing us to participate in the care of this patient. We will continue to follow. Please do not hesitate to contact us with any questions or concerns.
Subjective/Objective
Subjective Data
Date of Service: August 28, 2024
Objective Data
Vital Signs
Temp Pulse Resp BP Pulse Ox
36.7 C 78 17 140/70 98
08/27/24 16:43 08/27/24 23:15 08/27/24 22:00 08/27/24 23:15 08/28/24 01:49
Lab Results
08/28/24 05:49
PT 13.2 Sec (11.4-14.6) 08/27/24 17:35
INR 0.97 08/27/24 17:35
Sodium 141 mmol/L (135-145) 08/27/24 17:33
Potassium 3.4 mmol/L (3.5-5.1) L 08/27/24 17:33
BUN 19 mg/dl (9-20) 08/27/24 17:33
Glucose 181 mg/dl (70-99) H 08/27/24 17:33
Calcium 9.3 mg/dl (8.4-10.2) 08/27/24 17:33
[id number] Pept Cancelled 08/27/24 17:34
Patient Allergies
No Known Allergies Allergy (Verified 08/27/24 16:46)
Medications
-
Active Medications
Generic Name Dose Route Start Last Admin
Trade Name Freq PRN Reason Stop Dose Admin
Acetaminophen 650 mg 08/27/24 22:49 08/28/24 05:41
Acetaminophen 325 Mg Tablet PO 09/24/24 22:48 650 mg
Q4HPRN PRN Administration
mild pain/WATERMAN/temp> 100.4F
Amlodipine Besylate 2.5 mg 08/27/24 22:49 08/27/24 23:15
Amlodipine 2.5 Mg Tablet PO 09/24/24 22:48 2.5 mg
HS KEYANNA Administration
Atorvastatin Calcium 10 mg 08/28/24 20:00
Atorvastatin (Lipitor) 10 Mg Tablet PO 09/25/24 19:59
Q48H KEYANNA
Gabapentin 300 mg 08/27/24 22:49 08/27/24 23:15
Gabapentin 300 Mg Capsule PO 09/24/24 22:48 300 mg
HS KEYANNA Administration
Lisinopril 20 mg 08/28/24 08:00
Lisinopril 20 Mg Tablet PO 09/25/24 07:59
DAILY KEYANNA
Nortriptyline HCl 50 mg 08/28/24 22:00
Nortriptyline 25 Mg Capsule PO 09/25/24 21:59
HS KEYANNA
Pyridostigmine [place] 30 mg 08/28/24 08:00
Pyridostigmine 60 Mg Tablet PO 09/25/24 07:59
TID KEYANNA
Sodium Chloride 0 flush 08/27/24 22:00
Sodium Chloride 0.9% (Flush) Syringe IV 09/24/24 21:59
PER PROTOCOL KEYANNA
Home Medications
�Medication �Instructions �Recorded
amlodipine 2.5 mg tablet 2.5 mg PO HS Blood Pressure 12/29/23
atorvastatin 10 mg tablet 10 mg PO Q48H High Cholesterol 12/29/23
gabapentin 300 mg capsule 300 mg PO HS Neurological Condition 12/29/23
lisinopril 20 1 tab PO DAILY Blood Pressure 12/29/23
mg-hydrochlorothiazide 25 mg tablet
nortriptyline 50 mg capsule 50 mg PO HS Depression 12/29/23
Vital Signs and Labs
-
Vital Signs and Labs:
Vital Signs
Temp Pulse Resp BP Pulse Ox
36.7 C 78 17 140/70 98
08/27/24 16:43 08/27/24 23:15 08/27/24 22:00 08/27/24 23:15 08/28/24 01:49
Lab Results
08/28/24 05:49
08/28/24 05:49
PT 13.2 Sec (11.4-14.6) 08/27/24 17:35
INR 0.97 08/27/24 17:35
Sodium 138 mmol/L (135-145) 08/28/24 05:49
Potassium 3.5 mmol/L (3.5-5.1) 08/28/24 05:49
BUN 18 mg/dl (9-20) 08/28/24 05:49
Glucose 147 mg/dl (70-99) H 08/28/24 05:49
Calcium 9.1 mg/dl (8.4-10.2) 08/28/24 05:49
Wmw-T-Bfkflemdsfy Pept Cancelled 08/27/24 17:34
Medications
-
Medications:
Generic Name Dose Route Start Last Admin
Trade Name Freq PRN Reason Stop Dose Admin
Acetaminophen 650 mg 08/27/24 22:49 08/28/24 05:41
Acetaminophen 325 Mg Tablet PO 09/24/24 22:48 650 mg
Q4HPRN PRN Administration
mild pain/WATERMAN/temp> 100.4F
Amlodipine Besylate 2.5 mg 08/27/24 22:49 08/27/24 23:15
Amlodipine 2.5 Mg Tablet PO 09/24/24 22:48 2.5 mg
HS KEYANNA Administration
Atorvastatin Calcium 10 mg 08/28/24 20:00
Atorvastatin (Lipitor) 10 Mg Tablet PO 09/25/24 19:59
Q48H KEYANNA
Gabapentin 300 mg 08/27/24 22:49 08/27/24 23:15
Gabapentin 300 Mg Capsule PO 09/24/24 22:48 300 mg
HS KEYANNA Administration
Lisinopril 20 mg 08/28/24 08:00
Lisinopril 20 Mg Tablet PO 09/25/24 07:59
DAILY KEYANNA
Nortriptyline HCl 50 mg 08/28/24 22:00
Nortriptyline 25 Mg Capsule PO 09/25/24 21:59
HS KEYANNA
Pyridostigmine [place] 30 mg 08/28/24 08:00
Pyridostigmine 60 Mg Tablet PO 09/25/24 07:59
TID KEYANNA
Sodium Chloride 0 flush 08/27/24 22:00
Sodium Chloride 0.9% (Flush) Syringe IV 09/24/24 21:59
PER PROTOCOL KEYANNA
Home Medications
-
Home Medications
amlodipine 2.5 mg tablet 2.5 mg PO HS Blood Pressure 12/29/23
atorvastatin 10 mg tablet 10 mg PO Q48H High Cholesterol 12/29/23
gabapentin 300 mg capsule 300 mg PO HS Neurological Condition 12/29/23
lisinopril 20 mg-hydrochlorothiazide 25 mg tablet 1 tab PO DAILY Blood Pressure 12/29/23
nortriptyline 50 mg capsule 50 mg PO HS Depression 12/29/23
[2024-08-28 07:48] LABS: Blood Urea Nitrogen 18 mg/dl (9-20); Calcium 9.1 mg/dl (8.4-10.2); Carbon Dioxide 23 mmol/L (22-30); Chloride 103 mmol/L (98-107); Glucose 147 mg/dl (70-99); Potassium 3.5 mmol/L (3.5-5.1); Sodium 138 mmol/L (135-145); eGFR > 60.00
[2024-08-28 08:13] VITALS: BP 156/68
[2024-08-28] MEDS: ZESTRIL 20 MG PO (08:27)
[2024-08-28] MEDS: MESTINON 30 MG PO (08:28)
[2024-08-28 12:54] LABS: C-Reactive Protein < 5.00 mg/L (0.0-10.00)
[2024-08-28 13:08] LABS: Calcium 9.4 mg/dl (8.4-10.2)
[2024-08-28] MEDS: DELTASONE 40 MG PO (13:10)
[2024-08-28 13:40] LABS: Vitamin B12 525 pg/ml (239-931)
--- NOTE | 2024-08-28 15:11 | W.PN.HOSP.TC ---
Today's Communication/Plan
-
Assessment / Plan
Assessment / Plan
General: No Apparent Distress, Comfortable and Conversant
HEENT: NormoCephalic, right eye ptosis
Respiratory: No accessory muscle use or audible wheezing
Cardiac: Normal sinus rhythm, heart rate around 80
GI: Soft, Non Tender, Non Distended and Normal Bowel Sounds
Musculoskeletal: No Edema, no deformity
Skin: Warm and dry
: NO [place]
Neuro: Awake, Alert, right eye ptosis
Psych: Calm and cooperative
Mr. 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
ago, causing diplopia, has been using prism lenses since that time without issues), and vestibular dysfunction with ongoing balance issues (and occasional migraine episodes, on nortriptyline) who presented with diplopia. He reports having
horizontal binocular diplopia since 08/23/24. He does have associated right-sided headache with sensitivity to touch but does not have eye pain or pain with eye movement. He then developed pronounced right eye ptosis yesterday 08/27. His labs and
vital signs have been generally unremarkable. He has been admitted for further evaluation and management.
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
- Appears acute on chronic
- Ongoing workup for inflammatory/demyelinating disease and infectious versus neoplastic etiologies
- Appreciate neurology guidance
- Started on steroids
- No evidence of stroke on MRI brain, will obtain MRI with and without gadolinium
- Will pursue lumbar puncture if MRI results are concerning
-ESR and CRP within normal limits, Lyme negative, B12 normal
- Follow-up ALFIE, CHARLENE, Sjogren's
- Tylenol for headaches, continue home gabapentin 300 mg p.o. at night
Hypertension:
- Continue home amlodipine and lisinopril, hold HCTZ
CODE STATUS: Full code
Anticipated Discharge: > 48 hours
Subjective/Interval History
-
Date of Service: August 28, 2024
Patient was seen and examined at bedside this morning. He continues to have mild persistent right temporal headache and right eye ptosis. No evidence of acute stroke on MRI brain. Awaiting further evaluation with MRI with contrast and possible
lumbar puncture.
Objective Data
-
Labs:
Laboratory Results
08/28/24 08/28/24
05:49 12:18
WBC 6.7
Hgb 13.6
Hct 37.2 L
Plt Count 195
Sodium 138
Potassium 3.5
Chloride 103
Carbon Dioxide 23
BUN 18
Creatinine 1.0
Glucose 147 H
Calcium 9.1 9.4
Vital Signs:
Vital Signs
Temp Pulse Resp BP Pulse Ox
97.7 F 78 14 156/68 97
08/28/24 13:51 08/27/24 23:15 08/27/24 23:00 08/28/24 08:13 08/28/24 08:14
Review of Systems
-
History Source: Patient
All other systems: Reviewed and negative
Neuro: Reports Headache (Right temporal headache) and Other (Right eye ptosis)
Physical Exam
-
General: No Apparent Distress
[2024-08-28 16:35] VITALS: BP 171/78
[2024-08-28 17:27] VITALS: BP 187/92
[2024-08-28] MEDS: APRESOLINE 10 MG IV (18:02)
--- NOTE | 2024-08-28 18:30 | PTCARENOTE ---
Pt received from ED. Walked to bed 339-1 from stretcher. AAOx3. pt presents with pytosis of R eye and complains of 3/10 pain in R-side of face/head. Tylenol administered. BP elevated on admission. MD notified. PRN hydralazine ordered and
administered. Pt agitated because of held BP medications effecting BP. Call franco within reach, will continue to monitor.
[2024-08-28 19:39] VITALS: BP 180/87
[2024-08-28 20:00] VITALS: BP 164/78
[2024-08-28] MEDS: LIPITOR 10 MG PO (22:12)
[2024-08-28] MEDS: NORVASC 2.5 MG PO (22:13)
[2024-08-28] MEDS: NEURONTIN 300 MG PO (22:13)
[2024-08-28] MEDS: PAMELOR 50 MG PO (22:14)
[2024-08-28 23:00] VITALS: BP 163/78
[2024-08-29] VITALS (9 sets, daily range): BP systolic 79–164; BP diastolic 63–79; BMI 27.5
[2024-08-29 07:16] LABS: % Basophils 0.2 % (0-2); % Eosinophils 0.2 % (0-6); % Immature Granulocytes 0.4 % (0-0.5); % Lymphocytes 13.2 % (20.5-51.1); % Monocytes 8.1 % (1.7-9.3); % Neutrophils 77.9 % (42.2-75.2); Absolute Lymphocytes 1.4 10^3/uL (1.2-3.4); Absolute Monocytes 0.8 10^3/uL (0.1-0.6); Hematocrit 39.3 % (39.0-52.0); Mean Corp Hgb Conc. 35.6 g/dL (33.0-37.0); Mean Corpuscular Volume 87.1 fL (80.0-94.0); Mean Platelet Volume 9.8 fL (7.4-10.4); Nucleated Red Blood Cells % 0 % (-); Platelet Count 226 10^3/uL (130-400); Red Blood Cell Count 4.51 10^6/uL (4.70-6.10); Red Cell Dist. Width 12.6 % (11.5-14.5); White Blood Cell Count 10.3 10^3/uL (4.8-10.8)
[2024-08-29 07:26] LABS: Blood Urea Nitrogen 22 mg/dl (9-20); Calcium 9.7 mg/dl (8.4-10.2); Carbon Dioxide 28 mmol/L (22-30); Chloride 102 mmol/L (98-107); Glucose 138 mg/dl (70-99); Potassium 3.7 mmol/L (3.5-5.1); Sodium 139 mmol/L (135-145); eGFR > 60.00
--- NOTE | 2024-08-29 07:45 | W.PN.NEURO.1 ---
Today's Communication / Plan
-
.
Subjective/Objective
Subjective Data
Date of Service: August 29, 2024
Neurology follow-up note.
24-hour events: Transiently hypertensive up to 187/92, afebrile.
Mr. Johnston endorses ongoing diplopia and admits to intermittent dysarthria. He has had intermittent holocephalic headache and denied having facial numbness,dysaphgia, vertigo, tinnitus.
Brain MRI with ivette showed no evidence of acute infarcts or enhancement.
PMH: Common variable immunodeficiency, hemochromatosis?, BL Rosenthal's palsy, SCC, BCC, HTN, DLP, IGT, vestibular dysfunction, chronic back pain, skin 'granulomas ', arthropathy
PSH: BL iridotomy, right knee arthroscopy, partial medial meniscectomy, most surgeries
SH: , non-smoker, retired IT, uses cane as needed
FH:CAD, DM
All:NKDA
ROS: Constitutional: Negative. Negative for chills, fever and unexpected weight change
HENT: Positive for hearing impairment
Eyes: Positive for diplopia
Respiratory: Negative for cough, choking and shortness of breath.
Cardiovascular: Negative for chest pain, palpitations and leg swelling.
Gastrointestinal: Negative for abdominal pain and vomiting.
Endocrine: Negative. Negative for cold intolerance.
Genitourinary: Negative for dysuria, flank pain and urgency.
Musculoskeletal: Positive for arthralgias
Skin: Positive for rash
Allergic/Immunologic: Positive for immunocompromised state.
Neurological: Positive for diplopia, proptosis
General: Well developed. In no acute distress.
Cardio: Regular rate and rhythm without murmur. Extremities are without cyanosis or edema.
Neuro:
Mental Status: Alert, oriented to person, place, and date. Comprehension, likely due to hearing impairment. Good fund of knowledge. Follows complex requests across the midline. Comprehension, naming, and repetition intact.
Cranial Nerves: Pupils are equally round and reactive to light. EOMs full. Right exodeviation in primary gaze. Limited right adduction. Near complete right ptosis. No nystagmus V1-V3 intact to light touch and pinprick bilaterally, symmetric.
Face symmetric. Poor hearing AU. The palate elevated well. SCMs and traps 5/5. Tongue midline. Mild dysarthria.
Motor: Normal bulk and tone. No pronator or arm drift. Strength 5/5 throughout. No clonus.
Sensory:
Coordination: No dysmetria or tremor.
Gait: deferred
Assessment and Plan:
I. R CN III palsy. Mild dysarthria. History of BL CN VII palsies. Differential diagnosis includes inflammatory versus neoplastic etiologies.
II. 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
III. Common variable immunodeficiency
- Aspiration precaution
- Strict blood pressure control
- Please utilize eyepatch
- Continue prednisone
- Please follow-up requested serologies
- Will proceed with CSF studies
I personally reviewed all radiology and labs along with past medical records pertinent to current medical problems. Total time spent in patient care is 35 minutes.
Thank you for allowing us to participate in the care of this patient. We will continue to follow. Please do not hesitate to contact us with any questions or concerns.
Objective Data
Vital Signs
Temp Pulse Resp BP Pulse Ox
36.6 C 75 17 137/73 94
08/29/24 07:21 08/29/24 07:21 08/29/24 07:21 08/29/24 07:21 08/29/24 07:21
Lab Results
08/29/24 06:13
08/29/24 06:13
PT 13.2 Sec (11.4-14.6) 08/27/24 17:35
INR 0.97 08/27/24 17:35
Sodium 139 mmol/L (135-145) 08/29/24 06:13
Potassium 3.7 mmol/L (3.5-5.1) 08/29/24 06:13
BUN 22 mg/dl (9-20) H 08/29/24 06:13
Glucose 138 mg/dl (70-99) H 08/29/24 06:13
Calcium 9.7 mg/dl (8.4-10.2) 08/29/24 06:13
Usd-M-Oeqospqqvkh Pept Cancelled 08/27/24 17:34
Vitamin B12 525 pg/ml (862-520) 08/28/24 12:18
Patient Allergies
No Known Allergies Allergy (Verified 08/27/24 16:46)
Vital Signs and Labs
-
Vital Signs and Labs:
Vital Signs
Temp Pulse Resp BP Pulse Ox
36.6 C 75 17 137/73 94
08/29/24 07:21 08/29/24 07:21 08/29/24 07:21 08/29/24 07:21 08/29/24 07:21
Lab Results
08/29/24 06:13
08/29/24 06:13
PT 13.2 Sec (11.4-14.6) 08/27/24 17:35
INR 0.97 08/27/24 17:35
Sodium 139 mmol/L (135-145) 08/29/24 06:13
Potassium 3.7 mmol/L (3.5-5.1) 08/29/24 06:13
BUN 22 mg/dl (9-20) H 08/29/24 06:13
Glucose 138 mg/dl (70-99) H 08/29/24 06:13
Calcium 9.7 mg/dl (8.4-10.2) 08/29/24 06:13
Sip-I-Drenvtfzkcx Pept Cancelled 08/27/24 17:34
Vitamin B12 525 pg/ml (185-860) 08/28/24 12:18
Medications
-
Medications:
Generic Name Dose Route Start Last Admin
Trade Name Freq PRN Reason Stop Dose Admin
Acetaminophen 650 mg 08/27/24 22:49 08/28/24 16:48
Acetaminophen 325 Mg Tablet PO 09/24/24 22:48 650 mg
Q4HPRN PRN Administration
mild pain/WATERMAN/temp> 100.4F
Amlodipine Besylate 2.5 mg 08/27/24 22:49 08/28/24 22:13
Amlodipine 2.5 Mg Tablet PO 09/24/24 22:48 2.5 mg
HS KEYANNA Administration
Atorvastatin Calcium 10 mg 08/28/24 20:00 08/28/24 22:12
Atorvastatin (Lipitor) 10 Mg Tablet PO 09/25/24 19:59 10 mg
Q48H KEYANNA Administration
Gabapentin 300 mg 08/27/24 22:49 08/28/24 22:13
Gabapentin 300 Mg Capsule PO 09/24/24 22:48 300 mg
HS KEYANNA Administration
Hydralazine HCl 10 mg 08/28/24 17:56 08/28/24 18:02
Hydralazine 20 Mg/Ml Vial IV 09/25/24 17:55 10 mg
Q6HPRN PRN Administration
for SBP >180
Lisinopril 20 mg 08/28/24 08:00 08/28/24 08:27
Lisinopril 20 Mg Tablet PO 09/25/24 07:59 20 mg
DAILY KEYANNA Administration
Nortriptyline HCl 50 mg 08/28/24 22:00 08/28/24 22:14
Nortriptyline 25 Mg Capsule PO 09/25/24 21:59 50 mg
HS KEYANNA Administration
Prednisone 40 mg 08/28/24 13:00 08/28/24 13:10
Prednisone 20 Mg Tablet PO 09/25/24 12:59 40 mg
DAILY KEYANNA Administration
Sodium Chloride 0 flush 08/27/24 22:00
Sodium Chloride 0.9% (Flush) Syringe IV 09/24/24 21:59
PER PROTOCOL KEYANNA
Home Medications
-
Home Medications
amlodipine 2.5 mg tablet 2.5 mg PO HS Blood Pressure 12/29/23
atorvastatin 10 mg tablet 10 mg PO Q48H@0800 High Cholesterol 12/29/23
gabapentin 300 mg capsule 300 mg PO HS Neurological Condition 12/29/23
lisinopril 20 mg-hydrochlorothiazide 25 mg tablet 1 tab PO DAILY Blood Pressure 12/29/23
nortriptyline 50 mg capsule 50 mg PO HS Depression 12/29/23
docusate sodium 100 mg capsule (Colace) 100 mg PO BIDPRN PRN constipation 08/28/24
vit C 250 mg-vit E 90 mg-zinc 40 mg-copper 1 vs-cluudb-tqbqja capsule (PreserVision AREDS-2) 1 tab PO BID 08/28/24
[2024-08-29] MEDS: ZESTRIL 20 MG PO (09:19)
[2024-08-29] MEDS: DELTASONE 40 MG PO (09:20)
[2024-08-29 10:54] LABS: Intact PTH 57.6 pg/ml (13.6-85.8)
[2024-08-29] MEDS: ORETIC 25 MG PO (11:52)
--- NOTE | 2024-08-29 14:07 | W.PN.HOSP.TC ---
Today's Communication/Plan
-
Assessment / Plan
Assessment / Plan
General: No Apparent Distress, Comfortable and Conversant
HEENT: NormoCephalic, right eye ptosis, mild point tenderness right temporal region
Respiratory: No accessory muscle use or audible wheezing
Cardiac: Normal sinus rhythm, heart rate around 80
GI: Soft, Non Tender, Non Distended and Normal Bowel Sounds
Musculoskeletal: No Edema, no deformity
Skin: Warm and dry
: NO Moscoso
Neuro: Awake, Alert, right eye ptosis
Psych: Calm and cooperative
Mr. 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
ago, causing diplopia, has been using prism lenses since that time without issues), and vestibular dysfunction with ongoing balance issues (and occasional migraine episodes, on nortriptyline) who presented with diplopia. He reports having
horizontal binocular diplopia since 08/23/24. He does have associated right-sided headache with sensitivity to touch but does not have eye pain or pain with eye movement. He then developed pronounced right eye ptosis yesterday 08/27. His labs and
vital signs have been generally unremarkable. He has been admitted for further evaluation and management.
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
- Acute right cranial nerve III palsy, history of bilateral facial nerve palsies
- Appears acute on chronic
- No evidence of stroke on MRI
- Ongoing workup for inflammatory/demyelinating disease and infectious versus neoplastic etiologies, lumbar puncture pending
- Appreciate neurology guidance
- ESR and CRP within normal limits, B12 normal
- Follow-up ALFIE, CHARLENE, Sjogren's, Lyme
- Tylenol for headaches, continue home gabapentin 300 mg p.o. at night
Hypertension:
- Continue home amlodipine and lisinopril-HCTZ
CODE STATUS: Full code
Anticipated Discharge: 24 - 48 hours
Subjective/Interval History
-
Date of Service: August 29, 2024
Patient was seen and examined at bedside this morning. He is awaiting lumbar puncture for further evaluation of his neurologic symptoms including right ptosis, diplopia, and temporal headache.
Objective Data
-
Labs:
Laboratory Results
08/29/24
06:13
WBC 10.3
Hgb 14.0
Hct 39.3
Plt Count 226
Sodium 139
Potassium 3.7
Chloride 102
Carbon Dioxide 28
BUN 22 H
Creatinine 1.0
Glucose 138 H
Calcium 9.7
Vital Signs:
Vital Signs
Temp Pulse Resp BP Pulse Ox
97.9 F 79 17 147/76 94
08/29/24 07:21 08/29/24 11:52 08/29/24 07:21 08/29/24 11:52 08/29/24 08:20
I&O
08/28/24 08/29/24 08/30/24
06:59 06:59 06:59
Intake Total 480 / 480
Balance 480 / 480
Review of Systems
-
History Source: Patient
All other systems: Reviewed and negative
Breast: Reports Other
Neuro: Reports Headache (Right temporal headache), Weakness (Right ptosis) and Other (Diplopia)
Physical Exam
-
General: No Apparent Distress
--- NOTE | 2024-08-29 15:29 | CM ---
Alert awake oriented patient who lives with his Jessica in a 2 story home with 1 step to enter and bed and bathroom on first floor. He is independent in driving and in all activities of daily living.He was offered VN he declined need.GIMENEZ letter
given and explained. Pt declined to sign Gimenez .Copy on chart.
No VN hx / No SNF history
Pharmacy [facility] on [address] [place] in [place]
PLAN Home Declined VN
[2024-08-29 16:44] LABS: Angiotensin-1-converting Enzym <10 U/L (16-85)
[2024-08-29 16:56] LABS: ANA, IgG Reflex to HEp-2 None Detected (None Detected)
[2024-08-29 17:55] LABS: Spinal Fluid Glucose 110 mg/dl (40-70); Spinal Fluid Protein 81 mg/dl (12-60)
[2024-08-29 18:03] LABS: CSF Color Colorless; CSF Tube # 4; CSF Tube # Clarity Clear
[2024-08-29 18:05] LABS: Red Cell Count/CSF 11 mm^3; White Blood Cell Count/CSF 1 mm^3 (0-5)
[2024-08-29 18:15] LABS: CSF Clarity Clear; CSF Color Colorless; CSF Tube # 1
[2024-08-29 18:16] LABS: Red Cell Count/CSF 138 mm^3; White Cell Count/CSF 5 mm^3 (0-5)
[2024-08-29] MEDS: NORVASC 2.5 MG PO (21:30)
[2024-08-29] MEDS: NEURONTIN 300 MG PO (21:30)
[2024-08-29] MEDS: PAMELOR 50 MG PO (21:31)
[2024-08-30 00:53] LABS: SSA 52 (Ro)(ENA) Ab, IgG 2 AU/mL (0-40); SSA 60 (Ro)(ENA) Ab, IgG 0 AU/mL (0-40); SSB (La)(ENA) Ab, IgG 0 AU/mL (0-40)
[2024-08-30 07:05] VITALS: BP 136/68
--- NOTE | 2024-08-30 07:18 | W.PN.NEURO.1 ---
Today's Communication / Plan
-
.
Subjective/Objective
Subjective Data
Date of Service: August 30, 2024
Neurology follow-up note.
24-hour events: No acute events overnight.
CSF (08/29/2024)�glucose 110 (serum glucose�138), protein 81.
ALFIE in the serum (less than 10) vitamin B12�525, normal PTH.
Mr. Johnston endorses improvement of his right-sided ptosis.
PMH: Common variable immunodeficiency, hemochromatosis?, BL Rosenthal's palsy, SCC, BCC, HTN, DLP, IGT, vestibular dysfunction, chronic back pain, skin 'granulomas ', arthropathy
PSH: BL iridotomy, right knee arthroscopy, partial medial meniscectomy, most surgeries
SH: , non-smoker, retired IT, uses cane as needed
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
All:NKDA
ROS: Constitutional: Negative. Negative for chills, fever and unexpected weight change
HENT: Positive for hearing impairment
Eyes: Positive for diplopia
Respiratory: Negative for cough, choking and shortness of breath.
Cardiovascular: Negative for chest pain, palpitations and leg swelling.
Gastrointestinal: Negative for abdominal pain and vomiting.
Endocrine: Negative. Negative for cold intolerance.
Genitourinary: Negative for dysuria, flank pain and urgency.
Musculoskeletal: Positive for arthralgias
Skin: Positive for rash
Allergic/Immunologic: Positive for immunocompromised state.
Neurological: Positive for diplopia, proptosis
General: Well developed. In no acute distress.
Cardio: Regular rate and rhythm without murmur. Extremities are without cyanosis or edema.
Neuro:
Mental Status: Alert, oriented to person, place, and date. Comprehension, likely due to hearing impairment. Good fund of knowledge. Follows complex requests across the midline. Comprehension, naming, and repetition intact.
Cranial Nerves: Pupils are equally round and reactive to light. EOMs full. Right exodeviation in primary gaze. Limited right adduction. Near complete right ptosis. No nystagmus V1-V3 intact to light touch and pinprick bilaterally, symmetric.
Face symmetric. Poor hearing AU. The palate elevated well. SCMs and traps 5/5. Tongue midline. Mild dysarthria.
Motor: Normal bulk and tone. No pronator or arm drift. Strength 5/5 throughout. No clonus.
Sensory:
Coordination: No dysmetria or tremor.
Gait: deferred
Assessment and Plan:
I. Acute R CN III palsy. Differential diagnosis includes microvascular versus inflammatory.
II. History of BL CN VII palsies.
III. Common variable immunodeficiency
- Strict blood pressure and glycemic control
- Please utilize eyepatch
- Continue prednisone 40 mg daily with taper as outpatient.
- Please follow-up CSF and serological studies
- Outpatient neurology follow-up in 2 weeks.
- Please recall neurology services any questions or concern
I personally reviewed all radiology and labs along with past medical records pertinent to current medical problems. Total time spent in patient care is 35 minutes.
Thank you for allowing us to participate in the care of this patient. Please do not hesitate to contact us with any questions or concerns.
Objective Data
Vital Signs
Temp Pulse Resp BP Pulse Ox
36.6 C 76 16 143/72 96
08/29/24 23:00 08/29/24 23:00 08/29/24 23:00 08/29/24 23:00 08/29/24 23:00
Lab Results
08/29/24 06:13
08/29/24 06:13
PT 13.2 Sec (11.4-14.6) 08/27/24 17:35
INR 0.97 08/27/24 17:35
Sodium 139 mmol/L (135-145) 08/29/24 06:13
Potassium 3.7 mmol/L (3.5-5.1) 08/29/24 06:13
BUN 22 mg/dl (9-20) H 08/29/24 06:13
Glucose 138 mg/dl (70-99) H 08/29/24 06:13
Calcium 9.7 mg/dl (8.4-10.2) 08/29/24 06:13
Ehe-G-Iwuiqmqapmd Pept Cancelled 08/27/24 17:34
Vitamin B12 525 pg/ml (950-959) 08/28/24 12:18
Patient Allergies
No Known Allergies Allergy (Verified 08/27/24 16:46)
Vital Signs and Labs
-
Vital Signs and Labs:
Vital Signs
Temp Pulse Resp BP Pulse Ox
36.7 C 69 18 136/68 97
08/30/24 07:05 08/30/24 07:05 08/30/24 07:05 08/30/24 07:05 08/30/24 08:15
Lab Results
08/29/24 06:13
08/29/24 06:13
PT 13.2 Sec (11.4-14.6) 08/27/24 17:35
INR 0.97 08/27/24 17:35
Sodium 139 mmol/L (135-145) 08/29/24 06:13
Potassium 3.7 mmol/L (3.5-5.1) 08/29/24 06:13
BUN 22 mg/dl (9-20) H 08/29/24 06:13
Glucose 138 mg/dl (70-99) H 08/29/24 06:13
Calcium 9.7 mg/dl (8.4-10.2) 08/29/24 06:13
Cuu-F-Tvtgukemlfh Pept Cancelled 08/27/24 17:34
Vitamin B12 525 pg/ml (693-518) 08/28/24 12:18
Medications
-
Medications:
Generic Name Dose Route Start Last Admin
Trade Name Freq PRN Reason Stop Dose Admin
Acetaminophen 650 mg 08/27/24 22:49 08/28/24 16:48
Acetaminophen 325 Mg Tablet PO 09/24/24 22:48 650 mg
Q4HPRN PRN Administration
mild pain/WATERMAN/temp> 100.4F
Amlodipine Besylate 2.5 mg 08/27/24 22:49 08/29/24 21:30
Amlodipine 2.5 Mg Tablet PO 09/24/24 22:48 2.5 mg
HS KEYANNA Administration
Atorvastatin Calcium 10 mg 08/28/24 20:00 08/28/24 22:12
Atorvastatin (Lipitor) 10 Mg Tablet PO 09/25/24 19:59 10 mg
Q48H KEYANNA Administration
Gabapentin 300 mg 08/27/24 22:49 08/29/24 21:30
Gabapentin 300 Mg Capsule PO 09/24/24 22:48 300 mg
HS KEYANNA Administration
Hydralazine HCl 10 mg 08/28/24 17:56 08/28/24 18:02
Hydralazine 20 Mg/Ml Vial IV 09/25/24 17:55 10 mg
Q6HPRN PRN Administration
for SBP >180
Hydrochlorothiazide 25 mg 08/29/24 11:00 08/30/24 07:48
Hydrochlorothiazide 25 Mg Tablet PO 09/26/24 10:59 25 mg
DAILY KEYANNA Administration
Lisinopril 20 mg 08/28/24 08:00 08/30/24 07:48
Lisinopril 20 Mg Tablet PO 09/25/24 07:59 20 mg
DAILY KEYANNA Administration
Nortriptyline HCl 50 mg 08/28/24 22:00 08/29/24 21:31
Nortriptyline 25 Mg Capsule PO 09/25/24 21:59 50 mg
HS KEYANNA Administration
Prednisone 40 mg 08/28/24 13:00 08/29/24 09:20
Prednisone 20 Mg Tablet PO 09/25/24 12:59 40 mg
DAILY KEYANNA Administration
Sodium Chloride 0 flush 08/27/24 22:00
Sodium Chloride 0.9% (Flush) Syringe IV 09/24/24 21:59
PER PROTOCOL KEYANNA
Home Medications
-
Home Medications
amlodipine 2.5 mg tablet 2.5 mg PO HS Blood Pressure 12/29/23
atorvastatin 10 mg tablet 10 mg PO Q48H@0800 High Cholesterol 12/29/23
gabapentin 300 mg capsule 300 mg PO HS Neurological Condition 12/29/23
lisinopril 20 mg-hydrochlorothiazide 25 mg tablet 1 tab PO DAILY Blood Pressure 12/29/23
nortriptyline 50 mg capsule 50 mg PO HS Depression 12/29/23
docusate sodium 100 mg capsule (Colace) 100 mg PO BIDPRN PRN constipation 08/28/24
vit C 250 mg-vit E 90 mg-zinc 40 mg-copper 1 he-ppyxxz-yxnbll capsule (PreserVision AREDS-2) 1 tab PO BID 08/28/24
[2024-08-30] MEDS: ZESTRIL 20 MG PO (07:48)
[2024-08-30] MEDS: ORETIC 25 MG PO (07:48)
--- NOTE | 2024-08-30 11:54 | W.DCSUMMARY ---
Discharge Summary
Discharge Data
Date of Admission: 08/30/24
Date of Discharge: 08/30/24
-
Pending Results: No
Hospital Course
Mr. 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
ago, causing diplopia, has been using prism lenses since that time without issues), and vestibular dysfunction with ongoing balance issues (and occasional migraine episodes, on nortriptyline) who presented with diplopia. He reports having
horizontal binocular diplopia since 08/23/24. He does have associated right-sided headache with sensitivity to touch but does not have eye pain or pain with eye movement. He then developed pronounced right eye ptosis yesterday 08/27. His labs and
vital signs have been generally unremarkable. He was admitted for further evaluation and management.
MRI brain with and without gadolinium enhancement showed no clear etiologies of his presenting symptoms. Subsequent lumbar puncture and CSF studies have so far been unremarkable other than very mildly elevated total protein. ESR, CRP, CHARLENE,
Sjogren's serologies, and B12 serum levels were within normal limits. Lyme serologies are pending. He has clinically improved with steroid treatment. After discussion with patient and neurologist, decision was made to continue oral steroids with
outpatient taper and follow-up in the outpatient neurology office for further evaluation and management once CFS studies have resulted. He has remained afebrile and hemodynamically stable throughout his hospitalization. His hematology and
chemistry lab work have remained unremarkable. He will be discharged to home with oral steroid taper and outpatient neurology and primary care follow-up.
General: No Apparent Distress, Comfortable and Conversant
HEENT: NormoCephalic, right eye ptosis, mild point tenderness right temporal region
Respiratory: No accessory muscle use or audible wheezing
Cardiac: Normal sinus rhythm, heart rate around 70
GI: Soft, Non Tender, Non Distended and Normal Bowel Sounds
Musculoskeletal: No Edema, no deformity
Skin: Warm and dry
: NO Moscoso
Neuro: Awake, Alert, right eye ptosis
Psych: Calm and cooperative
Discharge Plan
-
Patient Disposition: Home (Routine Discharge)
Discharge Diagnosis/Procedures: Acute right cranial nerve III palsy
Diet: Low Cholesterol
Activity: No restrictions
Driving Restrictions: Not until seen by your Dr
Activity Restrictions/Additional Instructions:
Mr. 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
ago, causing diplopia, has been using prism lenses since that time without issues), and vestibular dysfunction with ongoing balance issues (and occasional migraine episodes, on nortriptyline) who presented with diplopia. He reports having
horizontal binocular diplopia since 08/23/24. He does have associated right-sided headache with sensitivity to touch but does not have eye pain or pain with eye movement. He then developed pronounced right eye ptosis yesterday 08/27. His labs and
vital signs have been generally unremarkable. He was admitted for further evaluation and management.
MRI brain with and without gadolinium enhancement showed no clear etiologies of his presenting symptoms. Subsequent lumbar puncture and CSF studies have so far been unremarkable other than very mildly elevated total protein. ESR, CRP, CHARLENE,
Sjogren's serologies, and B12 serum levels were within normal limits. Lyme serologies are pending. He has clinically improved with steroid treatment. After discussion with patient and neurologist, decision was made to continue oral steroids with
outpatient taper and follow-up in the outpatient neurology office for further evaluation and management once CFS studies have resulted. He has remained afebrile and hemodynamically stable throughout his hospitalization. His hematology and
chemistry lab work have remained unremarkable. He will be discharged to home with oral steroid taper and outpatient neurology and primary care follow-up.
Referrals:
Sanam Yarbrough MD [Active] -
UNKNOWN - PT DOES,NOT KNOW [Family Provider] -
Prescriptions:
New
methylprednisolone [Medrol (George)] 4 mg tablets,dose pack
See Rx Instructions .ROUTE .COMPLEX Qty: 21 0RF
Rx Instructions:
for 6 days
Continued
atorvastatin 10 mg Tablet
10 mg PO Q48H@0800
amlodipine 2.5 mg Tablet
2.5 mg PO HS
gabapentin 300 mg Capsule
300 mg PO HS
lisinopril-hydrochlorothiazide 20-25 mg Tablet
1 tab PO DAILY
nortriptyline 50 mg Capsule
50 mg PO HS
docusate sodium [Colace] 100 mg Capsule
100 mg PO BIDPRN PRN (Reason: constipation)
PreserVision AREDS-2 250-90-40-1 mg Capsule
1 tab PO BID
Discharge Orders:
Discharge Patient (As Directed); Ordered 08/30/24
Ordered By: Emeterio Gann
Discharge Date and Time
Print Language: EMIRATI
[2024-08-30 12:38] VITALS: BP 158/91
--- NOTE | 2024-08-30 16:05 | CM ---
MD entered order for discharge.
Pt changed to inpatient status. IMM reviewed with pt He stated understanding.
drove him home.\\
Offered VAN he declined need.
PLAN Home no needs
[2024-08-31 15:21] LABS: C.neoformans Antigen Negative (Negative)
[2024-09-01 00:01] LABS: Angiotensin-1- Converting, CSF 0.4 U/L (0.0-2.5)
[2024-09-01 09:28] LABS: Lyme Disease DNA by PCR Not Detected; Lyme Source CSF
== END 2024-08-30 13:14 | disposition home or self-care (01) | DRG 123 ==
LOC: 3 WEST ACU 07:36
PROVIDERS: Nurse Practitioner Family; Radiology Vascular & Interventional Radiology; ADMITTING PHYSICIAN Hospitalist; ATTENDING PHYSICIAN Internal Medicine; CONSULT PHYSICIAN Psychiatry & Neurology Neurology; EMERGENCY PHYSICIAN Emergency Medicine
PROC: 009Y3ZX Drainage of Lumbar Spinal Cord, Percutaneous Approach, Diagnostic (ICD-10-PCS; 2024-08-29)
DX: H49.01 Third [oculomotor] nerve palsy, right eye (principal); D83.9 Common variable immunodeficiency, unspecified; H53.2 Diplopia; I10 Essential (primary) hypertension; H02.401 Unspecified ptosis of right eyelid; E78.5 Hyperlipidemia, unspecified; G43.909 Migraine, unspecified, not intractable, without status migrainosus; E83.119 Hemochromatosis, unspecified; G89.29 Other chronic pain; Z85.828 Personal history of other malignant neoplasm of skin; Z82.49 Family history of ischemic heart disease and other diseases of the circulatory system; M12.9 Arthropathy, unspecified
CPT/HCPCS: 62328; 70496; 70498; 70551; 70553; 80048; 80053; 82040; 82042; 82164; 82607; 82784; 82945; 83873; 83916; 83970; 84157; 85025; 85027; 85610; 85652; 86038; 86140; 86235; 86592; 87015; 87070; 87205; 87327; 87476; 87483; 88108; 89051; 99285; A9575; Q9967

== ENCOUNTER 2025-02-05 14:52 | Emergency (ER) | payer MEDICARE, SELFPAY ==
[2025-02-05 14:55] VITALS: BP 148/65
[2025-02-05 15:21] LABS: Hematocrit 38.4 % (39.0-52.0); Hemoglobin 13.6 g/dL (13.0-18.0); Mean Corp Hgb Conc. 35.4 g/dL (33.0-37.0); Mean Corpuscular Volume 85.5 fL (80.0-94.0); Nucleated Red Blood Cells % 0 % (-); Platelet Count 235 10^3/uL (130-400); Red Cell Dist. Width 12.5 % (11.5-14.5)
[2025-02-05 15:35] LABS: ALT (SGPT) 26 U/L (0-50); AST (SGOT) 27 U/L (17-59); Albumin 4.5 g/dl (3.5-5.0); Alkaline Phosphatase 84 U/L (38-126); Blood Urea Nitrogen 24 mg/dl (9-20); Calcium 9.6 mg/dl (8.4-10.2); Carbon Dioxide 30 mmol/L (22-30); Chloride 99 mmol/L (98-107); Glucose 101 mg/dl (70-99); Potassium 4.0 mmol/L (3.5-5.1); Sodium 135 mmol/L (135-145); Total Protein 6.5 g/dl (6.3-8.2); eGFR > 60.00
--- NOTE | 2025-02-05 17:58 | ED.GENMED ---
History of Present Illness
General
Chief Complaint: Visual Problem
Source: patient and records
Exam Limitations: none
Time Seen by Provider: 02/05/25 17:18
Nursing documentation reviewed up to this point in time: agreed with
History of Present Illness
History of Present Illness:
Note:
CHIEF COMPLAINT(S)
Double vision for three days.
HISTORY OF PRESENT ILLNESS
The patient is a 79-year-old male who presents with a complaint of double vision that has recurred over the past three days. The patient reports experiencing a similar episode in August of this year, leading to a three-day hospitalization, during
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 The patient notes that their vision had largely improved to about 80-90% of what it was before the stroke. However, two days ago, the double vision
returned and worsened significantly this morning. The patient is uncertain but suspects the left eye may now be affected. The patient describes the change in visual clarity between the two eyes, noting that previously the affected eye presented with
clarity issues that have now reversed. The patient does not recall any specific precipitating events or new symptoms associated with the onset of the double vision.
PAST MEDICAL AND SURGICAL HISTORY
The patient mentioned a past stroke that involved cranial nerve III earlier this year.
EXTERNAL RECORDS REVIEWED
The provider reviewed previous records indicating that the patient underwent a CT scan with intravenous dye in 2011, which did not result in any noted allergic reaction at the time.
CHRONIC MEDICAL CONDITIONS SIGNIFICANTLY AFFECTING CARE
The patient is currently on a blood thinner.
PLAN
1. Consult with a neurologist regarding the recurrence of double vision and assess the need for hospitalization for further workup.
2. Possibly continue with additional imaging and evaluations as needed.
3. Pre-medication will be administered prior to CT scan to prevent any adverse reaction, including steroids and Benadryl, as discussed with the patient.
4. Update and communicate further findings and plans with the patient.
DIFFERENTIAL DIAGNOSIS
The Differential Diagnosis includes, in no particular order and is not limited to:
1. Recurrence of stroke
2. Cranial nerve palsy
3. Vascular abnormalities affecting ocular motor function
4. Neuropathy due to diabetes
5. Brain tumor or lesion
6. Increased intracranial pressure
7. Migraine with aura
8. Hypertension-related retinal changes
9. Multiple sclerosis
10. Giant cell arteritis
PHYSICAL EXAM
General: Alert, no acute distress.
Skin: Warm, dry.
Head: Normocephalic, atraumatic.
Neck: Supple, trachea midline.
Eye, Ear, Nose, Mouth, and Throat: Oral mucosa moist.
Cardiovascular: Normal peripheral perfusion, No edema.
Respiratory: Respirations are non-labored.
Gastrointestinal: Abdomen nondistended.
Back: Normal range of motion, Normal alignment.
Musculoskeletal: Normal range of motion, normal strength.
Neurological: Alert and oriented to person, place, time, and situation, No focal neurological deficit observed.
Psychiatric: Cooperative, appropriate mood & affect.
Disposition:
SUMMARY OF ENCOUNTER
The patient was seen in the emergency department due to recurrent double vision that had started three days ago. This was of particular concern due to a past stroke affecting cranial nerve III earlier this year. Initially, the vision had improved
significantly, but the sudden recurrence raised suspicion for another possible stroke or transient ischemic attack (TIA). After evaluation, including a neurologist consultation, the patient was started on clopidogrel (Plavix) for stroke prevention
and was recommended to have an outpatient MRI for further assessment. The patient tolerated the treatment plan well and was deemed stable for discharge.
DISPOSITION
Discharge home.
PLAN
The patient is to follow up with their primary care provider to schedule an MRI for further evaluation of the vision changes and any underlying causes. They will also need a follow-up with a neurology specialist for additional assessment and
management of the condition.
PATIENT EDUCATION AND COUNSELING
The patient was provided with return precautions and educated on recognizing symptoms that would warrant immediate medical attention, such as worsening vision, sudden weakness, or confusion.
FOLLOW-UP INSTRUCTIONS
Follow-up is advised with the patients primary care provider and a neurology specialist for further evaluation, including scheduling an MRI.
MEDICATION RECONCILIATION
Clopidogrel (Plavix) was initiated during the stay for stroke prevention.
MEDICAL DECISION MAKING
- Number and Complexity of Problems Addressed: Chronic conditions affecting care include a previous stroke involving cranial nerve III and the current presentation with double vision. Differential Diagnosis includes recurrence of stroke, cranial
nerve palsy, and other possible vascular or neurological causes.
- Data:
Category 3: Discussion of the management with the neurologist was documented.
- Risk: Consideration of Admission/Observation: Escalation of care including admission/observation was considered due to the complexity and risk associated with the patients presentation and their medical history. However, the patient was deemed
safe for outpatient management with close follow-up due to the reassuring work-up results and the stability of the patients symptoms upon reevaluation.
DIAGNOSIS
- Blurry Vision and Double Vision, likely due to Transient Ischemic Attack (TIA).
- ICD-10: H53.8 for distorted vision and G45.9 for Transient Ischemic Attack, unspecified.
Phy Exam
Physical Exam
Physical Exam:
.
Course
Orders/Labs/Results
Orders:
Orders
02/05/25 15:01
Electrocardiogram (*1) Urgent
Reason for Study: Vertigo / Dizzy
Head wo Contrast CT [CT Head W/o Iv Contrast] Urgent
Comment:
Reason For Exam: double vision
02/05/25 15:02
EKG- Treatment ONCE
02/05/25 15:12
CMP [Comprehensive Metabolic Panel] Urgent
Complete Blood Count/With Diff Urgent
02/05/25 17:58
CT Head & Neck Angio W/wo IV Urgent
Comment:
Reason For Exam: blurry vision, right CN III palsy
02/05/25 21:41
Clopidogrel Bisulfate [Plavix] 300 mg PO NOW STA
Abnormal Lab Results
02/05/25
15:12
RBC 4.49 L 10^6/uL
(4.70-6.10)
Hct 38.4 L %
(39.0-52.0)
Absolute Monos (auto) 0.8 H 10^3/uL
(0.1-0.6)
Lymphocytes % 18.6 L %
(20.5-51.1)
BUN 24 H mg/dl
(9-20)
Glucose 101 H mg/dl
(70-99)
02/05/25 15:12
02/05/25 15:12
Vital Signs
Initial and Last Documented VS:
Initial Vital Signs
Temp Pulse Resp BP Pulse Ox
98.0 F 84 18 148/65 98
02/05/25 14:55 02/05/25 14:55 02/05/25 14:55 02/05/25 14:55 02/05/25 14:55
Last Documented Vital Signs
Temp Pulse Resp BP Pulse Ox
98.8 F 75 11 155/74 96
02/05/25 19:12 02/05/25 21:45 02/05/25 21:45 02/05/25 21:00 02/05/25 21:45
*Pulse Oximetry
SaO2: 98
Oxygen Mode of Delivery: Room air
Patient hypoxic: no
*Critical Care Note
Total Time (30-74mins, 75-104mins- exclusive of procedures): Not Applicable
ED Attending Note
-
Portions of this chart may have been created with voice recognition software.� Occasional wrong word or��sound alike� substitutions may have occurred due to the inherent limitations of voice recognition software.
Discharge Plan
Departure
Patient Disposition: Home (Routine Discharge)
Date of Disposition: 02/05/25
Time of Disposition: 21:41
Patient with high blood pressure during this ER visit?: Yes
Condition: Good
Discharge Problem:
Diplopia, TIA (transient ischemic attack)
Instructions: Transient ischemic attack, Double Vision (DC), BLOOD PRESSURE
Prescriptions:
New
clopidogrel [Plavix] 75 mg tablet
75 mg PO DAILY Qty: 21 0RF
No Action
atorvastatin 10 mg Tablet
10 mg PO Q48H@0800
amlodipine 2.5 mg Tablet
2.5 mg PO HS
gabapentin 300 mg Capsule
300 mg PO HS
lisinopril-hydrochlorothiazide 20-25 mg Tablet
1 tab PO DAILY
nortriptyline 50 mg Capsule
50 mg PO HS
docusate sodium [Colace] 100 mg Capsule
100 mg PO BIDPRN PRN (Reason: constipation)
PreserVision AREDS-2 250-90-40-1 mg Capsule
1 tab PO BID
methylprednisolone [Medrol (George)] 4 mg tablets,dose pack
See Rx Instructions .ROUTE .COMPLEX Qty: 21 0RF
Rx Instructions:
for 6 days
Referrals:
Enrique Lauren RN [Nursing]
Kris Lauren MD [Active, Neurology] - Call in 1-3 days for appt
Enmanuel Salomon MD, Resident [Family Provider, General]
Interventions
Interventions:
*Risk Screen - Suicide Last Done: 02/05/25 19:03
*General Assessment Last Done: 02/05/25 19:03
*Neglect/Abuse Screening Last Done: 02/05/25 19:03
*ED- Fall Risk Assessment Last Done: 02/05/25 19:03
*ED COVID-19 Vaccine History Last Done: 02/05/25 19:03
*ED Influenza Vaccine History Last Done: 02/05/25 19:03
ED- Neurological Assessment Last Done: 02/05/25 19:17
ED-EENT Assessment Last Done: 02/05/25 19:22
ED Swallowing Screen Last Done: 02/05/25 19:22
Discharge Date and Time
Print Language: STATELESS
[2025-02-05 19:03] VITALS: BMI 28.2
[2025-02-05 19:12] VITALS: BP 166/83
[2025-02-05 19:23] VITALS: BP 168/71
[2025-02-05 20:13] VITALS: BP 176/77
[2025-02-05 21:00] VITALS: BP 155/74
[2025-02-05] MEDS: PLAVIX 300 MG PO (21:59)
[2025-02-05 22:00] VITALS: BP 158/81
== END 2025-02-05 22:04 | disposition home or self-care (01) ==
LOC: EMR 14:52
PROVIDERS: Emergency Medicine; EMERGENCY PHYSICIAN Emergency Medicine; FAMILY PHYSICIAN Student in an Organized Health Care Education/Training Program
DX: H53.2 Diplopia (principal); G45.9 Transient cerebral ischemic attack, unspecified; Z86.73 Personal history of transient ischemic attack (TIA), and cerebral infarction without residual deficits
CPT/HCPCS: 99284; 70450; 70496; 70498; 80053; 85025; 93005; Q9967